=== PATIENT | male | born 1980 | race Caucasian/White ===

== ENCOUNTER 2016-08-17 17:59 | Emergency (ER) | payer OTHER ==
[2016-08-17 18:17] VITALS: RESP 16; TEMP 97.3; O2SAT 98
--- NOTE | 2016-08-17 19:28 | C.PDOC ---
History Of Present Illness 36 year old male presents to the ED with complaints of right second toe pain for the last few days after hitting toe on wall. Patient denies any obvious deformities, weakness, or sensory vascular deficits. Time Seen by Provider: 08/17/16 18:15 Chief Complaint (Nursing): Lower Extremity Problem/Injury History Per: Patient History/Exam Limitations: no limitations Onset/Duration Of Symptoms: Days (3 days ) Current Symptoms Are (Timing): Still Present Recent travel outside of the [place]: No - Ankle/Foot Description Of Injury: Struck Against Object (struck against wall ) Past Medical History Reviewed: Historical Data, Nursing Documentation, Vital Signs Vital Signs: Last Vital Signs Temp 97.3 F L 08/17/16 18:14 Pulse 92 H 08/17/16 18:14 Resp 16 08/17/16 18:14 BP 160/93 H 08/17/16 18:14 Pulse Ox 98 08/17/16 19:32 - Medical History PMH: Atrial Fibrillation (? PT IS UNSURE), Back Problems (HERNIATED DISCS), Crohn's Disease, HTN, Hypercholesterolemia, Hyperlipidemia Family History: States: [place], CAD, Diabetes, Hypertension - Social History Hx Tobacco Use: Yes (1/2 ppd for 24 years) Hx Alcohol Use: Yes Hx Substance Use: Yes (MARIJUANA, EVERY OTHER DAY, states has a liscense) - Immunization History Hx Influenza Vaccination: No Hx Pneumococcal Vaccination: No Review Of Systems Constitutional: Negative for: Fever, Chills, Sweats Cardiovascular: Negative for: Chest Pain, Palpitations Respiratory: Negative for: Cough, Shortness of Breath Gastrointestinal: Negative for: Nausea, Vomiting, Abdominal Pain, Diarrhea Musculoskeletal: Positive for: Foot Pain (right second toe pain ) Physical Exam - Physical Exam Appears: Non-toxic, No Acute Distress Skin: Warm, Dry, No Ecchymosis Extremity: Normal ROM, Tenderness (tenderness over distal right 2nd phalanx with trace ecchymoses, no defomrity. no skin changes.), Capillary Refill (good capillary refill ), Other (mild trace edema and eccyhmosis of the right second toe ) Neurological/Psych: Oriented x3, Normal Motor, Normal Sensation, Normal Reflexes Gait: Steady ED Course And Treatment O2 Sat by Pulse Oximetry: 98 (room air ) - Other Rad Right foot X-Ray: Interpreted by Me Interpretation: (+)?middle 2nd phalanx fx Progress Note: On re-evaluation, pt is afebrile, hemodynamicaly stable. Non- toxic. Right foot: exam c/w 2nd toe contusion, no deformity, no skin changes, no neurovascular deficits. xray review - no obvious fx noted. Ferdinand tape. Pt advised and ref. to F/u with windows technical specialist in 2-3 days for re-eavl. return if any new changes. Disposition Counseled Patient/Family Regarding: Studies Performed, Diagnosis, Need For Followup, Rx Given - Disposition Referrals: Podiatry Clinic [Outside] Disposition: HOME/ ROUTINE Disposition Time: 19:10 Condition: STABLE Additional Instructions: Ferdinand tape for 1 week take pain medication as need Ice, elevation, avoid prolong walking for 1 week Follow up with [facility] in 2-3 days for re-evaluation. Return to ED if any worsening or new changes. Prescriptions: traMADol [Ultram] 50 mg PO TID #7 tab Instructions: Toe Fracture (ED) - Clinical Impression Clinical Impression: Toe fracture - Scribe Statement The provider has reviewed the documentation as recorded by the Scribe Christine Bernal All medical record entries made by the Scribe were at my direction and personally dictated by me. I have reviewed the chart and agree that the record accurately reflects my personal performance of the history, physical exam, medical decision making, and the department course for this patient. I have also personally directed, reviewed, and agree with the discharge instructions and disposition.
[2016-08-17 19:53] VITALS: BP 142/85; PULSE 84
--- NOTE | 2016-08-18 08:51 | RAD ---
PROCEDURE: Right Foot Radiographs HISTORY: injury COMPARISON: None. FINDINGS: BONES: Normal. No fracture. JOINTS: Normal. SOFT TISSUES: Mild soft tissue swelling 2nd 3rd and 4th toes. Sissoring of the 4th toe of the 3rd and 5th over the 4th OTHER FINDINGS: None. IMPRESSION: No fracture appreciated. Soft tissue swelling. Toe scissoring orientation
== END 2016-08-17 19:52 | disposition home or self-care (01) ==
LOC: C.ER 17:59
DX: S92.521A Displaced fracture of middle phalanx of right lesser toe(s), initial encounter for closed fracture (principal); W22.8XXA Striking against or struck by other objects, initial encounter

== ENCOUNTER 2016-09-13 12:34 | Inpatient (IN) | payer MEDICAID, OTHER ==
[2016-09-13 12:47] VITALS: BMI 31.9
--- NOTE | 2016-09-13 14:16 | C.PDOC ---
History Of Present Illness 36 y/o male with history of left ventricular dysfunction with defibrillator, bipolar disorder; c/o intermittent sternal chest pain with occasional SOB since yesterday. Patient denies any firing of defibrillator or palpitations. Patient also c/o wanting to hurt himself over the last 2 days with verbalized plan of overdosing on medications all at once. Patient was hospitalized for previous suicidal attempt of similar nature, most recently Jul, 2016 at [facility] [place]. Time Seen by Provider: 09/13/16 13:48 Chief Complaint (Nursing): Chest Pain History Per: Patient History/Exam Limitations: no limitations Current Symptoms Are (Timing): Still Present Associated Symptoms: denies: Nausea, Diaphoresis Recent travel outside of the [place]: No Past Medical History Reviewed: Historical Data, Nursing Documentation, Vital Signs Vital Signs: Last Vital Signs Temp 97.8 F 09/13/16 15:25 Pulse 74 09/13/16 15:25 Resp 20 09/13/16 15:25 BP 122/81 09/13/16 15:25 Pulse Ox 95 09/13/16 15:25 - Medical History PMH: Atrial Fibrillation (? PT IS UNSURE), Back Problems (HERNIATED DISCS), Crohn's Disease, HTN, Hypercholesterolemia, Hyperlipidemia Family History: States: [place], CAD, Diabetes, Hypertension - Social History Hx Tobacco Use: Yes (1/2 ppd for 24 years) Hx Alcohol Use: Yes Hx Substance Use: Yes (MARIJUANA, EVERY OTHER DAY, states has a liscense) - Immunization History Hx Influenza Vaccination: No Hx Pneumococcal Vaccination: No Review Of Systems Except As Marked, All Systems Reviewed And Found Negative. Constitutional: Negative for: Fever, Chills Cardiovascular: Positive for: Chest Pain. Negative for: Palpitations Respiratory: Positive for: Shortness of Breath (occasional ). Negative for: Cough, Wheezing Gastrointestinal: Negative for: Nausea, Vomiting, Abdominal Pain Skin: Negative for: Rash Neurological: Negative for: Headache, Dizziness Psych: Positive for: Suicidal ideation Physical Exam - Physical Exam Appears: Non-toxic, No Acute Distress, Other (tearful) Skin: Warm, Dry, No Diaphoretic Head: Atraumatic, Normacephalic Eye(s): bilateral: Normal Inspection, PERRL, EOMI Oral Mucosa: Moist Chest: Symmetrical, Other (AICD left upper chest wall) Cardiovascular: Rhythm Regular Respiratory: Normal Breath Sounds, No Rales, No Rhonchi, No Wheezing Gastrointestinal/Abdominal: Soft, No Tenderness, No Guarding, No Rebound Back: Normal Inspection Extremity: Normal ROM, No Pedal Edema, No Calf Tenderness, Capillary Refill (< 2 sec. ) Neurological/Psych: Oriented x3, Normal Speech, Normal Cognition ED Course And Treatment - Laboratory Results Result Diagrams: 09/13/16 14:34 09/13/16 14:34 ECG: Interpreted By Me ECG Rhythm: Sinus Rhythm ECG Interpretation: No Changes From Prior (comapred with EKG from 05/15/2015) Interpretation Of ECG: right axis deviation, nonspecific intraventricular conduction delay O2 Sat by Pulse Oximetry: 95 (RA) Pulse Ox Interpretation: Normal Progress Note: Plan for full cardiac workup: EKG, CXR, labs, troponin. Likely admission, 1:1 crisis observation for suicidal ideation. Medical Decision Making Medical Decision Making: discussed with Rayo; wi;ll admot to his service on 1:1 and get psychiatry consult while on floor. first set trop neg. Disposition Discussed With Dr.: Juan Manuel Hui Doctor Will See Patient In The: Hospital - Disposition Disposition Time: 16:13 Condition: STABLE - Clinical Impression Clinical Impression: Chest pain, Suicidal ideation - PA / SPOON MAKER / Resident Statement MD/DO has reviewed & agrees with the documentation as recorded. - Scribe Statement The provider has reviewed the documentation as recorded by the Scribe Tino Kirby All medical record entries made by the Scribe were at my direction and personally dictated by me. I have reviewed the chart and agree that the record accurately reflects my personal performance of the history, physical exam, medical decision making, and the department course for this patient. I have also personally directed, reviewed, and agree with the discharge instructions and disposition.
[2016-09-13 14:44] LABS: BASO # 0.1 K/uL (0.0-0.2); BASO % 0.9 % (0.0-2.0); EOS # 0.2 K/uL (0.0-0.7); EOS % 1.9 % (0.0-4.0); LYMPH % 22.6 % (20.0-40.0); MEAN CELL VOLUME 88.7 fL (80.0-94.0); MEAN CORPUSCULAR HEMOGLOBIN 29.6 pg (27.0-31.0); MEAN CORPUSCULAR HGB CONC 33.3 g/dL (33.0-37.0); MEAN PLATELET VOLUME 8.4 fL (7.2-11.7); MONO # 0.8 K/uL (0.0-0.8); MONO % 8.8 % (0.0-10.0); NEUT # 5.9 K/uL (1.8-7.0); NEUT % 65.8 % (50.0-75.0); NRBC % 0.1 % (0.0-2.0); RBC 5.4 Mil/uL (4.40-5.90)
[2016-09-13 14:48] LABS: URINE BILIRUBIN NEGATIVE (NEGATIVE); URINE BLOOD NEGATIVE (NEGATIVE); URINE CLARITY Clear (Clear); URINE COLOR Yellow (YELLOW); URINE GLUCOSE (UA) NORMAL (Normal); URINE LEUKOCYTE ESTERASE NEG Leu/uL (Negative); URINE NITRATE NEGATIVE (NEGATIVE); URINE PROTEIN NEGATIVE (NEGATIVE); URINE UROBILINOGEN NORMAL mg/dL (0.2-1.0)
[2016-09-13 14:51] LABS: INR 1.1; PROTHROMBIN TIME 11.8 SECONDS (9.7-12.2)
[2016-09-13 14:56] LABS: BARBITURATES, UR NEGATIVE (NEGATIVE)
[2016-09-13 14:57] LABS: BENZODIAZEPINES, UR NEGATIVE (NEGATIVE)
[2016-09-13 15:00] LABS: OPIATES, UR NEGATIVE (NEGATIVE); PHENCYCLIDINE, UR NEGATIVE (NEGATIVE)
[2016-09-13] MEDS ORDERED: Acetaminophen-Codeine 300/30 mg Tab PO STA (15:09)
[2016-09-13 15:13] LABS: ALBUMIN 3.9 g/dL (3.5-5.0)
[2016-09-13 15:16] LABS: ALB/GLOB RATIO 1.3 (1.0-2.1); ALT/SGPT 44 U/L (21-72); AST/SGOT 25 U/L (17-59); BLOOD UREA NITROGEN 16 mg/dL (9-20); GFR AFRICAN-AMERICAN > 60; GFR NON-AFRICAN AMERICAN > 60
[2016-09-13 15:17] LABS: CALCIUM 8.5 mg/dl (8.6-10.4)
[2016-09-13] MEDS ORDERED: Acetaminophen-Codeine 300/30 mg Tab PO ONE (15:23)
--- NOTE | 2016-09-13 16:02 | RAD ---
HISTORY: chest pain COMPARISON: 05/15/2015 TECHNIQUE: Chest PA and lateral FINDINGS: LUNGS: No active pulmonary disease. PLEURA: No significant pleural effusion identified. No pneumothorax apparent. CARDIOVASCULAR: No radiographic findings to suggest acute or significant cardiovascular disease. Position/ configuration of pacemaker device: Satisfactory. OSSEOUS STRUCTURES: No significant abnormalities. VISUALIZED UPPER ABDOMEN: Normal. OTHER FINDINGS: None. IMPRESSION: No active disease. No significant interval change compared to the prior examination(s).
[2016-09-14 00:01] LABS: CK-MB 0.3 ng/mL (0.0-3.38)
[2016-09-14 01:34] VITALS: O2SAT 95
[2016-09-14 06:47] LABS: ALBUMIN 3.7 g/dL (3.5-5.0)
[2016-09-14 06:48] LABS: CK-MB 0.44 ng/mL (0.0-3.38)
[2016-09-14 06:50] LABS: ALB/GLOB RATIO 1.2 (1.0-2.1); ALT/SGPT 43 U/L (21-72); AST/SGOT 26 U/L (17-59); BLOOD UREA NITROGEN 15 mg/dL (9-20); GFR AFRICAN-AMERICAN > 60; GFR NON-AFRICAN AMERICAN > 60
[2016-09-14 06:51] LABS: CALCIUM 8.7 mg/dl (8.6-10.4)
--- NOTE | 2016-09-14 07:20 | CP.PCM.PN ---
Objective - Vital Signs/Intake and Output Vital Signs (last 24 hours): Temp Pulse Resp BP Pulse Ox 97.8 F 75 20 147/89 95 09/14/16 00:05 09/14/16 00:59 09/14/16 00:05 09/14/16 00:05 09/14/16 00:05 - Medications Medications: Current Medications Bupropion HCl (Wellbutrin Xl) 150 mg PO DAILY [facility] Clonazepam (Klonopin) 0.5 mg PO BID [facility] Cyclobenzaprine HCl (Flexeril) 5 mg PO TID [facility] Diclofenac Sodium (Voltaren) 50 mg PO TID [facility] Enoxaparin Sodium (Lovenox) 40 mg SC DAILY [facility] Montelukast Sodium (Singulair) 10 mg PO HS [facility] Last Admin: 09/13/16 22:41 Dose: 10 mg Pantoprazole Sodium (Protonix Ec Tab) 40 mg PO DAILY [facility] Rivaroxaban (Xarelto) 20 mg PO DAILY [facility] Sotalol HCl (Betapace) 120 mg PO BID [facility] Testosterone (Androgel) 60 gm TOP DAILY [facility] Stop: 09/17/16 10:01 Tiotropium [place] (Spiriva Inhalation Handihaler Device) 1 inhaler INH DAILY [facility] Tramadol HCl (Ultram) 50 mg PO TID [facility] - Labs Labs: 09/14/16 06:08 PT 11.8 SECONDS (9.7-12.2) 09/13/16 14:34 INR 1.1 09/13/16 14:34 APTT 33 SECONDS (21-34) 09/13/16 14:34
[2016-09-14] MEDS ORDERED: Enoxaparin 40 mg Syringe SC SCH ×2 (10:00)
[2016-09-14] MEDS ORDERED: TESTOSTERONE TOP SCH (10:00)
[2016-09-14] MEDS: buPROPion 150 mg/24 Hours XL Tab PO SCH (11:23)
[2016-09-14] MEDS: Diclofenac Sodium Delayed Release 50 mg EC Tab PO SCH ×3 (11:24→20:01)
[2016-09-14] MEDS: Pantoprazole 40 mg EC Tab PO SCH (11:25)
--- NOTE | 2016-09-14 12:48 | PCM.PSYCH ---
Initial Psychiatric Evaluation - Initial Psychiatric Evaluation Type of Admission: Voluntary Legal Status: Capacity Chief Complaint (in patient's own words): I was feeling depressed and suicidal History of Present Illness and Precipitating Events: This is a 36 years old CM, who lives alone on SSI, was admitted on the medical floor because of chest pain and drinking. Today pt was consulted for depression and drinking. Patient reports a long history of drinking and bipolar disorder. Pt states that he is drinking 12-18 16 oz beers on a daily basis. As per the patient, he stopped taking medications after the last discharged from psychiatric hospital in 2005 and relapsed on drinking. Patient states that day before yesterday he drank almost 12 beers 16 oz, and became increasingly depressed and developed suicidal ideation with plan OD. But he developed chest pain and came to the hospital. He reports depressed mood, and feelings of hopelessness and helplessness. He also reports poor sleep and poor appetite. Patient reports withdrawal symptoms including nausea, sweating and anxiety. He also reports irritability, agitation and racing thoughts. However he denies any hallucinations or any delusions. Medical history Atrial Fibrillation s/p Defibrilator, Back Problems (HERNIATED DISCS), Crohn's Disease, HTN, Hypercholesterolemia, Hyperlipidemia Current Medications: Active Medications Generic Name Dose Route Start Last Admin Trade Name Freq PRN Reason Stop Dose Admin Bupropion HCl 150 mg 09/14/16 10:00 09/14/16 11:23 Wellbutrin Xl PO 150 mg DAILY [facility] Administration Clonazepam 0.5 mg 09/14/16 10:00 09/14/16 11:23 Klonopin PO 0.5 mg BID [facility] Administration Cyclobenzaprine HCl 5 mg 09/14/16 10:00 09/14/16 11:23 Flexeril PO 5 mg TID [facility] Administration Diclofenac Sodium 50 mg 09/14/16 10:09/14/16 11:24 Voltaren PO 50 mg TID [facility] Administration Montelukast Sodium 10 mg 09/13/16 22:00 09/13/16 22:41 Singulair PO 10 mg HS [facility] Administration Pantoprazole Sodium 40 mg 09/14/16 10:09/14/16 11:25 Protonix Ec Tab PO 40 mg DAILY [facility] Administration Rivaroxaban 20 mg 09/14/16 10:00 09/14/16 11:23 Xarelto PO 20 mg DAILY [facility] Administration Sotalol HCl 120 mg 09/14/16 10:00 09/14/16 11:23 Betapace PO 120 mg BID [facility] Administration Testosterone 60 gm 09/14/16 10:00 09/14/16 11:23 Androgel TOP 09/17/16 10:01 Not Given DAILY [facility] Tiotropium [place] 18 mcg 09/15/16 08:00 Spiriva INH RQD [facility] Tramadol HCl 50 mg 09/14/16 10:00 09/14/16 11:24 Ultram PO 50 mg TID [facility] Administration Past Psychiatric History - Past Psychiatric History Previous Treatment History: Inpatient Pertinent Medical Hx (Current Medical&Sleep Prob, Allergies): Allergies Allergy/AdvReac Type Severity Reaction Status Date / Time No Known Allergies Allergy Verified 09/13/16 12:51 Bupropion HCl [Bupropion HCl Xl] 150 mg PO DAILY 08/17/16 Clonazepam [Klonopin] 0.5 mg PO BID 08/17/16 Diclofenac Potassium 50 mg PO TID 08/17/16 Hydrocodone/Acetaminophen [Acetaminophen-Hydrocodone Bitartrate 325 mg-1] 1 tab PO Q4 PRN 08/17/16 Montelukast Sodium [Singulair] 10 mg PO DAILY 08/17/16 Nabumetone [Relafen] 750 mg PO BID 08/17/16 Omeprazole 40 mg PO DAILY 08/17/16 Rivaroxaban [Xarelto] 20 mg PO DAILY 08/17/16 Sotalol [Betapace] 120 mg PO BID 08/17/16 Testosterone 60 gm TD DAILY 08/17/16 Tiotropium [place] Inhaler [Spiriva Inhalation Handihaler Device] 1 inhaler INH DAILY 08/17/16 tiZANidine [Zanaflex] 4 mg PO BID 08/17/16 traMADol [Ultram] 50 mg PO TID PRN 09/13/16 Review of Systems - Review of Systems All systems: reviewed and no additional remarkable complaints except - Psychiatric Psychiatric: Anxiety, Depression, Irritability, Mood Swings, Suicidal Ideation Mental Status Examination - Personal Presentation Personal Presentation: Looks stated age - Affect Affect: Constricted, Depressed - Motor Activity Motor Activity: Calm - Reliability in Providing Information Reliability in Providing Information: Good - Speech Speech: Organized - Mood Mood: Depressed, Anxious - Formal Thought Process Formal Thought Process: No Impairment - Obsessions/Compulsions Obsessions: No Compulsions: No - Cognitive Functions Orientation: Person, Place, Situation, Time Sensorium: Alert Attention/Concentration: Attentive Abstract Thinking: Tarrs Estimate of Intelligence: Below average Judgement: Imparied, as evidence by: Poor judgement, Imparied, as evidence by: Lack of insight into illness - Risk Risk: Suicidal, Diminished functioning - Limitations Limitations: Living alone DSM 5 DX - DSM 5 DSM 5 Diagnosis: Bipolar disorder Mixed severe without psychotic features Cannabis use moderate - Recommended/Plan of Treatment Treatment Recommendations and Plan of Treatment: Bipolar disorder Mixed severe without psychotic features CBT Psychoeducation Supportive therapy, group therapy, individual therapy Welbutrin XL 150 mg PO Daily Neurontin 100 mg by mouth 3 times a day Trazodone 50 mg by mouth daily at bedtime Cannabis use moderate severe CBT Psychoeducation Supportive therapy, individual therapy Use MS for abstinence - Smoking Cessation Smoking Cessation Initiated: No
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
--- NOTE | 2016-09-14 16:07 | CARD ---
APPROVED REPORT EXAM: Two-dimensional and M-mode echocardiogram with Doppler and color Doppler. Other Information Quality : GoodRhythm : NSR INDICATION ICD: Abnormal EKG/Arrhythmia Chest Pain Palpitations M-Mode DIMENSIONS RVDd2.47 (2.1-3.2cm)Left Atrium (MM)4.45 (2.5-4.0cm) IVSd1.01 (0.7-1.1cm)Aortic Root3.12 (2.2-3.7cm) LVDd5.37 (4.0-5.6cm)Aortic Cusp Exc.1.56 (1.5-2.0cm) PWd1.14 (0.7-1.1cm)FS (%) 28 % LVDs3.84 (2.0-3.8cm)LVEF (%)54 (>50%) Mitral Valve MV E Hjyccuqu00.6cm/sMV A Uhmcpmzm53.6cm/sE/A ratio2.1 TDI E/Lateral E'0.0E/Medial E'0.0 Tricuspid Valve TR Peak [id number]/sTR Peak [id number] LEFT VENTRICLE The left ventricle is normal size. There is normal left ventricular wall thickness. The left ventricularsystolic function is at low normal. There is normal LV segmental wall motion. Transmitral Doppler flow pattern is Grade II-pseudonormal filling dynamics. RIGHT VENTRICLE The right ventricle is normal size. The right ventricular systolic function is normal. There is a pacemaker lead in the right ventricle. ATRIA The left atrium is mildly dilated. The right atrium size is normal. AORTIC VALVE The aortic valve is normal in structure. No aortic regurgitation is present. MITRAL VALVE The mitral valve is normal in structure. There is no mitral valve regurgitation noted. TRICUSPID VALVE The tricuspid valve is normal in structure. There is mild tricuspid regurgitation. PULMONIC VALVE The pulmonary valve is normal in structure. GREAT VESSELS The aortic root is normal in size. The IVC is normal in size and collapses >50% with inspiration. PERICARDIAL EFFUSION There is no pericardial effusion. <Conclusion> The left ventricularsystolic function is at low normal. Diastolic dysfunction Grade II-pseudonormal filling dynamics. The right ventricular systolic function is normal. There is a pacemaker lead in the right ventricle. The left atrium is mildly dilated. There is mild tricuspid regurgitation. There is no pericardial effusion.
--- NOTE | 2016-09-14 16:28 | PCM.BM ---
Treatment Plan Problems - Problems identified on initial assessmt Depression Date Initiated: 09/14/16 (Transfer from [address] [place] [address]) Time Initiated: 16:26 Assessment reference: NA Status: Active Treatment assets and liabiliti Patient Assests: adapts well, ADL independent, negotiates basic needs Patient Liabilities: substance abuse, medical problems - Milieu Protocol Maintain good personal hygiene: daily Encourage regular showers, daily Remind patient to perform daily oral care Maintain personal safety: every shift Educate patient to report safety concerns to staff, every shift Monitor environment for contraband/sharps Medication safety: Monitor for expected outcome, potential side effects: every shift, Assess barriers to learning: every shift, Assess readiness for medication education: every shift
[2016-09-15] MEDS: Pantoprazole 40 mg EC Tab PO SCH (09:38)
[2016-09-15] MEDS: buPROPion 150 mg/24 Hours XL Tab PO SCH (09:38)
[2016-09-15] MEDS: Tiotropium 18 mcg Cap For Inhalation INH SCH (09:40)
[2016-09-15] MEDS: Diclofenac Sodium Delayed Release 50 mg EC Tab PO SCH ×3 (09:41→17:23)
--- NOTE | 2016-09-15 11:41 | CARD ---
APPROVED REPORT EKG Measurement Heart [id number] <Conclusion> Normal sinus rhythm Right axis deviation Nonspecific intraventricular conduction delay Abnormal ECG
--- NOTE | 2016-09-15 13:38 | PCM.PYCHPN ---
Psychiatric Progress Note - Psychiatric Progress Note Patient seen today, length of contact: 16 min Patient Chief Complaint: I was feeling depressed and suicidal Problems Identified/Issues Discussed: Patient seen and evaluated, chart reviewed and discussed with the nurse. P[t was transferred to , for stabilization. As per the staff, patient still appears isolated, depressed and withdrawn. Patient still reports depressed mood and reports at times feelings of hopelessness or helplessness. He denies any withdrawal symptoms. He denies any auditory or visual hallucinations or any psychotic symptoms. He is compliant with his medications and denies any side effects. Supportive therapy and psychoeducation were given. Medication Change: No Medical Record Reviewed: Yes Mental Status Examination - Cognitive Function Orientation: Person, Place, Situation, Time Memory: Intact Attention: WNL Concentration: Poor Association: WNL Fund of Knowledge: Poor - Mood Mood: Depressed, Anxious - Affect Affect: Constricted, Depressed - Speech Speech: Soft - Formal Thought Process Formal Thought Process: No Impairment - Suicidal Ideation Suicidal Ideation: No - Homicidal Ideation Homicidal Ideation: No Goal/Treatment Plan - Goal/Treatment Plan Need for Continued Stay: Discharge may exacerbated symptoms, Severe functional impairment Progress Toward Problem(s) and Goals/Treatment Plan: Bipolar disorder Mixed severe without psychotic features CBT Psychoeducation Supportive therapy, group therapy, individual therapy Welbutrin XL 150 mg PO Daily Neurontin 100 mg by mouth 3 times a day Trazodone 50 mg by mouth daily at bedtime Cannabis use moderate severe CBT Psychoeducation Supportive therapy, individual therapy Use CA for abstinence Asthma Monitor s/s Continue prescribed meds A Fib Monitor s/s Continue prescribed meds Crohn's disease Continue prescribed meds Hypercholestrolimia Continue prescribed meds Back pain Monitor s/s Continue prescribed meds - Smoking Cessation Smoking Cessation Initiated: No
[2016-09-16] MEDS: buPROPion 150 mg/24 Hours XL Tab PO SCH (09:52)
[2016-09-16] MEDS: Diclofenac Sodium Delayed Release 50 mg EC Tab PO SCH ×3 (09:52→18:57)
[2016-09-16] MEDS: Pantoprazole 40 mg EC Tab PO SCH (09:52)
[2016-09-16] MEDS: Tiotropium 18 mcg Cap For Inhalation INH SCH (13:03)
--- NOTE | 2016-09-16 15:25 | PCM.PYCHPN ---
Psychiatric Progress Note - Psychiatric Progress Note Patient seen today, length of contact: 16 min Patient Chief Complaint: I am feeling better today Problems Identified/Issues Discussed: Patient seen and evaluated, chart reviewed and discussed with the nurse. Patient reports of feeling better today. He denies any suicidal ideations, and hallucinations. He states that his mood has improved since yesterday. Patient denies any withdrawal symptoms. Patient denies any delusions today. Patient is compliant with all his medications and denies any side effects. Supportive therapy and psychoeducation were given. Medication Change: No Medical Record Reviewed: Yes Mental Status Examination - Cognitive Function Orientation: Person, Place, Situation, Time Memory: Intact Attention: WNL Concentration: Poor Association: WNL Fund of Knowledge: Poor - Mood Mood: Depressed, Anxious - Affect Affect: Constricted, Depressed - Speech Speech: Soft - Formal Thought Process Formal Thought Process: No Impairment - Suicidal Ideation Suicidal Ideation: No - Homicidal Ideation Homicidal Ideation: No Goal/Treatment Plan - Goal/Treatment Plan Need for Continued Stay: Discharge may exacerbated symptoms, Severe functional impairment Progress Toward Problem(s) and Goals/Treatment Plan: Bipolar disorder Mixed severe without psychotic features CBT Psychoeducation Supportive therapy, group therapy, individual therapy Welbutrin XL 150 mg PO Daily Neurontin 100 mg by mouth 3 times a day Trazodone 50 mg by mouth daily at bedtime Cannabis use moderate severe CBT Psychoeducation Supportive therapy, individual therapy Use NM for abstinence Asthma Monitor s/s Continue prescribed meds A Fib Monitor s/s Continue prescribed meds Crohn's disease Continue prescribed meds Hypercholestrolimia Continue prescribed meds Back pain Monitor s/s Continue prescribed meds
[2016-09-16] MEDS ORDERED: Aluminum Hydroxide/Magnesium Hydroxide Susp (30 mL) PO PRN (16:05)
[2016-09-17] MEDS: buPROPion 150 mg/24 Hours XL Tab PO SCH (10:25)
[2016-09-17] MEDS: Pantoprazole 40 mg EC Tab PO SCH (10:26)
[2016-09-17] MEDS: Diclofenac Sodium Delayed Release 50 mg EC Tab PO SCH (10:27)
[2016-09-17] MEDS: Tiotropium 18 mcg Cap For Inhalation INH SCH (10:27)
--- NOTE | 2016-09-17 10:33 | PCM.PYCHDC ---
Mental Status Examination - Mental Status Examination Orientation: Person, Place, Situation, Time Memory: Intact Mood: Neutral Affect: Constricted Speech: Soft Attention: WNL Concentration: WNL Association: WNL Fund of Knowledge: WNL Formal Thought Process: No Impairment Description of patient's judgement and insight: good, fair Psychotic Thoughts and Behaviors: denies any AVH Suicidal Ideation: No Current Homicidal Ideation?: No Discharge Summary - Discharge Note Reason for Hospitalization: This is a 36 years old CM, who lives alone on [facility], was admitted on the medical floor because of chest pain and drinking. Today pt was consulted for depression and drinking. Patient reports a long history of drinking and bipolar disorder. Pt states that he is drinking 12-18 16 oz beers on a daily basis. As per the patient, he stopped taking medications after the last discharged from psychiatric hospital in 2005 and relapsed on drinking. Patient states that day before yesterday he drank almost 12 beers 16 oz, and became increasingly depressed and developed suicidal ideation with plan OD. But he developed chest pain and came to the hospital. He reports depressed mood, and feelings of hopelessness and helplessness. He also reports poor sleep and poor appetite. Patient reports withdrawal symptoms including nausea, sweating and anxiety. He also reports irritability, agitation and racing thoughts. However he denies any hallucinations or any delusions. Consultations:: List each consultation separately and include: 1. Reason for request. 2. Findings. 3. Follow-up Summary of Hospital Course include:: 1. Description of specific treatment plan utilized for patients during their course of treatmen. 2. Summarize the time- course for resolution of acute symptoms and/or regressed behaviors. 3. Describe issues identified and worked on during hospitalization. 4. Describe medication utilized. 5. Describe medical problems identified and treated. 6. Reassessment of suicide risk Summary of Hospital Course: During the course of his stay, patient (pt) started progressively improving and he no longer remained irritable, depressed, suicidal and agitated. His mood and withdrawal symptoms were improved and he started attending groups and meetings and started socializing. Patient denied any feelings of hopelessness, helplessness, and worthlessness, denied any problem with the sleep or appetite, denied suicidal ideation or homicidal ideation. Pt denied any auditory or visual hallucinations. Some changes were made in his current medications and patient was discharged on following medications. He tolerated these medications very well and denied any side effects. - Final Diagnosis (DSM 5) Condition upon Discharge: STABLE DSM 5: Bipolar disorder Mixed severe without psychotic features Cannabis use moderate severe Disposition: HOME/ ROUTINE Follow-up Treatment Plan: Education: Pt was educated and counseled about the risks and benefits of taking and not taking medications. Pt was educated and counseled about the risks of drinking and abusing drugs. Pt was educated and counseled to go to the ER or call 911 if pt develop suicidal ideation or homicidal ideation, worsening of symptoms or severe side effects of the meds. Prescriptions/Medication Reconciliation: buPROPion XL [Wellbutrin XL] 150 mg PO DAILY #30 t24 Cyclobenzaprine [Flexeril] 10 mg PO BID #60 tab traZODone [Desyrel] 50 mg PO HS #30 tab - Smoking Cessation Smoking Cessation Medication prescribed: No - Antipsychotic Medications Pt discharged on 2 or more routine antipsychotic medications: No
[2016-09-17 14:08] VITALS: BP 137/93; PULSE 61; RESP 19; TEMP 98.6
== END 2016-09-17 16:05 | disposition home or self-care (01) | DRG 430 ==
LOC: C.ER 12:34 → C.9E 16:11 → C.5T 18:18 → OBSVTOIN 09-14 13:06 → C.5E 09-14 16:11 → OBSVTOIN 09-15 11:23 → INTOOBSV 09-15 11:23 → C.5E 09-16 23:54
PROVIDERS: ADMIT Psychiatry & Neurology Psychiatry; ATTEND Psychiatry & Neurology Psychiatry
PROC: GZ3ZZZZ Medication Management (ICD-10-PCS; principal; 2016-09-14)
PROC: GZHZZZZ Group Psychotherapy (ICD-10-PCS; 2016-09-14)
PROC: GZ56ZZZ Individual Psychotherapy, Supportive (ICD-10-PCS; 2016-09-14)
PROC: HZ59ZZZ Individual Psychotherapy for Substance Abuse Treatment, Supportive (ICD-10-PCS; 2016-09-14)
PROC: HZ89ZZZ Medication Management for Substance Abuse Treatment, Other Replacement Medication (ICD-10-PCS; 2016-09-14)
DX: F31.63 Bipolar disorder, current episode mixed, severe, without psychotic features (principal); R45.851 Suicidal ideations; F12.10 Cannabis abuse, uncomplicated; K50.90 Crohn's disease, unspecified, without complications; R07.89 Other chest pain; I11.9 Hypertensive heart disease without heart failure; I48.91 Unspecified atrial fibrillation; E78.5 Hyperlipidemia, unspecified; E78.00 Pure hypercholesterolemia, unspecified; F41.9 Anxiety disorder, unspecified; J45.909 Unspecified asthma, uncomplicated; F17.210 Nicotine dependence, cigarettes, uncomplicated; G89.29 Other chronic pain; M51.26 Other intervertebral disc displacement, lumbar region; Z95.810 Presence of automatic (implantable) cardiac defibrillator; Z79.899 Other long term (current) drug therapy

== ENCOUNTER 2016-11-14 22:50 | Emergency (ER) | payer OTHER ==
[2016-11-14 22:50] VITALS: BMI 31.9
--- NOTE | 2016-11-14 23:19 | C.PDOC ---
History Of Present Illness 36 year old male who presents to the ER with a complaint of a sharp left sided chest pain that began 2 hours ago, associated with a mild cough. Patient states the pain worsens with movement and deep inspiration. Denies recent injury, fever, or SOB. Chief Complaint (Nursing): Chest Pain History Per: Patient History/Exam Limitations: no limitations Onset/Duration Of Symptoms: Hrs Current Symptoms Are (Timing): Still Present Quality: Sharp Associated Symptoms: denies: Nausea, Dyspnea, Diaphoresis, Syncope Modifying Factors: None Exacerbating Factors: None Alleviating Factors: None Recent travel outside of the [place]: No Past Medical History Reviewed: Historical Data, Nursing Documentation, Vital Signs Vital Signs: Last Vital Signs Temp 98 F 11/15/16 00:46 Pulse 65 11/15/16 00:46 Resp 18 11/15/16 00:46 BP 145/94 H 11/15/16 00:46 Pulse Ox 97 11/15/16 00:46 - Medical History PMH: Atrial Fibrillation (? PT IS UNSURE), Back Problems (HERNIATED DISCS), Crohn's Disease, HTN, Hypercholesterolemia, Hyperlipidemia Surgical History: No Surg Hx - [facility] Procedures GROUP PSYCHOTHERAPY (09/14/16) INDIV PSYCHOTHERAPY FOR SUBSTANCE ABUSE TREATMENT, SUPPORT (09/14/16) INDIVIDUAL PSYCHOTHERAPY, SUPPORTIVE (09/14/16) MEDICATION MANAGEMENT (09/14/16) MEDS MGMT FOR SUBSTANCE ABUSE TREATMENT, OTH REPL MED (09/14/16) Family History: States: [place], CAD, Diabetes, Hypertension - Social History Hx Tobacco Use: Yes (1/2 ppd for 24 years) Hx Alcohol Use: Yes Hx Substance Use: Yes - Immunization History Hx Influenza Vaccination: No Hx Pneumococcal Vaccination: No Review Of Systems Constitutional: Negative for: Fever, Chills Cardiovascular: Positive for: Chest Pain Respiratory: Negative for: Shortness of Breath Gastrointestinal: Negative for: Nausea, Vomiting Neurological: Negative for: Weakness, Numbness Physical Exam - Physical Exam Appears: Non-toxic, No Acute Distress Skin: Normal Color, Warm, Dry Head: Atraumatic, Normacephalic Oral Mucosa: Moist Neck: Normal, Supple Chest: Symmetrical, Tenderness (Left lateral wall area) Cardiovascular: Rhythm Regular, No Murmur Respiratory: Normal Breath Sounds, No Rales, No Rhonchi, No Wheezing Gastrointestinal/Abdominal: Soft, No Tenderness Neurological/Psych: Oriented x3, Normal Speech, Normal Cognition ED Course And Treatment - Laboratory Results Result Diagrams: 11/14/16 23:33 11/14/16 23:33 ECG: Interpreted By Me, Viewed By Me ECG Rhythm: Sinus Rhythm, 1st Degree HB ECG Interpretation: No Acute Changes Interpretation Of ECG: Sinus rhythm with 1st degree AV block, [place]. [place] deviation , IVCD, borderline tracings Rate From EC O2 Sat by Pulse Oximetry: 98 Pulse Ox Interpretation: Normal Progress Note: Blood work, EKG, and CXR ordered. IV fluids and toradol administered. Disposition - Disposition Referrals: Jose E Escobedo MD, PhD [Primary Care Provider] - Disposition: HOME/ ROUTINE Disposition Time: 02:46 Condition: STABLE Prescriptions: Naproxen [Naprosyn Tab] 375 mg PO TIDPC #14 tab Instructions: Chest Wall Pain (ED) Forms: [facility] ([place]) - POA Present On Arrival: None - Clinical Impression Clinical Impression: Left-sided chest wall pain - Scribe Statement The provider has reviewed the documentation as recorded by the Scribkristofer Burton All medical record entries made by the Scribe were at my direction and personally dictated by me. I have reviewed the chart and agree that the record accurately reflects my personal performance of the history, physical exam, medical decision making, and the department course for this patient. I have also personally directed, reviewed, and agree with the discharge instructions and disposition.
[2016-11-14] MEDS ORDERED: Sodium Chloride 0.9% 1,000 ML IV ONE (23:22)
[2016-11-14] MEDS ORDERED: Sodium Chloride 0.9% 1,000 ML ONE (23:35)
[2016-11-14 23:36] LABS: BASO % 0.2 % (0.0-2.0); EOS # 0.2 K/uL (0.0-0.7); EOS % 1.8 % (0.0-4.0); HEMATOCRIT 49.2 % (35.0-51.0); LYMPH # 2.6 K/uL (1.0-4.3); LYMPH % 24.8 % (20.0-40.0); MEAN CELL VOLUME 87.7 fL (80.0-94.0); MEAN CORPUSCULAR HEMOGLOBIN 30.4 pg (27.0-31.0); MEAN CORPUSCULAR HGB CONC 34.6 g/dL (33.0-37.0); MEAN PLATELET VOLUME 8.5 fL (7.2-11.7); MONO # 0.8 K/uL (0.0-0.8); MONO % 7.8 % (0.0-10.0); NRBC % 0.1 % (0.0-2.0); RED CELL DISTRIBUTION WIDTH 14.2 % (11.5-14.5); WHITE BLOOD COUNT 10.3 K/uL (4.8-10.8)
[2016-11-14 23:46] LABS: INR 1.1
[2016-11-14 23:52] LABS: CHLORIDE 105 mmol/L (98-107); POTASSIUM 3.7 mmol/L (3.6-5.2); SODIUM 141 mmol/L (132-148)
[2016-11-14 23:54] LABS: AST/SGOT 54 U/L (17-59); BILIRUBIN,TOTAL 0.6 mg/dL (0.2-1.3); GFR AFRICAN-AMERICAN > 60
[2016-11-14 23:55] LABS: ALB/GLOB RATIO 1.4 (1.0-2.1); ALKALINE PHOSPHATASE 78 U/L (38-126); ALT/SGPT 87 U/L (21-72); BLOOD UREA NITROGEN 15 mg/dL (9-20); CALCIUM 9.4 mg/dl (8.6-10.4); CARBON DIOXIDE 24 mmol/L (22-30); GLUCOSE,RANDOM 85 mg/dL (75-110); TOTAL PROTEIN 7.6 g/dL (6.3-8.3)
[2016-11-15 00:47] VITALS: TEMP 98
[2016-11-15] MEDS ORDERED: Iodixanol 320 MG/ML 100 ML BOTTLE IV ONE (01:07)
--- NOTE | 2016-11-15 02:31 | CT ---
EXAM: CT Angiography Chest With Intravenous Contrast CLINICAL HISTORY: 36 years old, male; Pain; Chest pain; Prior surgery; Surgery type: Back surgery, part of colon remove and heart surgery; Patient HX: Cxr 11-14-16 and 09-13-16; Additional info: Left sided chest pain/ elevated d-dimer TECHNIQUE: Axial computed tomographic angiography images of the chest with intravenous contrast using pulmonary embolism protocol. All CT scans at this facility use one or more dose reduction techniques, viz.: automated exposure control; ma/kV adjustment per patient size (including targeted exams where dose is matched to indication; i.e. head); or iterative reconstruction technique. MIP reconstructed images were created and reviewed. Coronal and sagittal reformatted images were created and reviewed. CONTRAST: 100 mL of [id number] administered intravenously. COMPARISON: CR - CHEST TWO VIEWS (PA/LAT) 11/15/2016 12:20:10 AM FINDINGS: Pulmonary arteries: No pulmonary embolism. Aorta: No aneurysm. No dissection. Lungs: Mild mucus within mainstem bronchi. No consolidation. Few pulmonary nodules, up to 0.3 cm. Pleural space: No significant effusion. No pneumothorax. Heart: No cardiomegaly. No significant pericardial effusion. Bones/joints: No acute fracture. No dislocation. Soft tissues: Unremarkable. Lymph nodes: No pathologically enlarged lymph nodes. Tubes, lines and devices: LEFT pacemaker. IMPRESSION: 1. No CT evidence of pulmonary embolism. 2. Pulmonary nodules. For low-risk patients, no follow-up is necessary. For high-risk patients (smoking history or other known risk factors) an optional CT at 12 months could be performed. 3. Incidental/non-acute findings are described above.
[2016-11-15 02:59] VITALS: BP 132/90; PULSE 91; RESP 20; O2SAT 100
--- NOTE | 2016-11-15 10:38 | RAD ---
HISTORY: chest pain COMPARISON: 09/13/2016 TECHNIQUE: Chest PA and lateral FINDINGS: LUNGS: Mild venous congestion. Biapical pleural thickening. PLEURA: No significant pleural effusion identified. No pneumothorax apparent. CARDIOVASCULAR: Left-sided pacemaker. Heart size within normal limits. OSSEOUS STRUCTURES: No significant abnormalities. VISUALIZED UPPER ABDOMEN: Normal. OTHER FINDINGS: None. IMPRESSION: Mild venous congestion. Biapical pleural thickening.
--- NOTE | 2016-11-18 20:41 | CARD ---
APPROVED REPORT EKG Measurement Heart [id number] <Conclusion> Sinus rhythm with 1st degree AV block Rightward axis Nonspecific intraventricular conduction delay Borderline ECG
== END 2016-11-15 02:58 | disposition home or self-care (01) ==
LOC: SUPCPDRO 22:50 → C.ER 22:50
DX: R07.89 Other chest pain (principal)
CPT/HCPCS: 71020; 71275; 80053; 84484; 85025; 85378; 85610; 85730; 96374; 99284; J1885; J7040; Q9967

== ENCOUNTER 2017-03-15 15:22 | Inpatient (IN) | payer MEDICAID, OTHER ==
[2017-03-15 15:22] VITALS: BMI 31.9
[2017-03-15] MEDS ORDERED: Iohexol 240 (50 ml) PO STA (15:58)
[2017-03-15] MEDS ORDERED: Sodium Chloride 0.9% 1,000 ML IV ONE (15:58)
[2017-03-15] MEDS ORDERED: Belladonna-Phenobarbital PO STA (15:58)
--- NOTE | 2017-03-15 16:04 | C.PDOC ---
History Of Present Illness 36 year old male with PMHx of depression and crohn's disease present to the ED c /o left lower abdominal pain rated at 10/10 associated with fever, chills, bloody diarrhea and vomit. Patient states he was diagnosed with crohn's disease couple of years ago and usually has flares ups but this time the pain is worse. Patient states he is drinking, eating normally and still smokes. Patient is currently taking medication for his depression. Patient denies dysuria, hematuria, back pain, headache, weakness, numbness. Time Seen by Provider: 03/15/17 15:49 Chief Complaint (Nursing): Abdominal Pain History Per: Patient History/Exam Limitations: no limitations Onset/Duration Of Symptoms: Intermittent Episodes Pain Scale Rating Of: 10 Location Of Pain/Discomfort: LLQ Radiation Of Pain To:: None Quality Of Discomfort: "Pain" Associated Symptoms: Fever, Chills, Vomiting, Diarrhea Alleviating Factors: None Last Bowel Movement: Today Recent travel outside of the [place]: No Additional History Per: Patient Past Medical History Reviewed: Historical Data, Nursing Documentation, Vital Signs Vital Signs: Last Vital Signs Temp 99 F 03/15/17 15:36 Pulse 78 03/15/17 15:36 Resp 18 03/15/17 15:36 BP 159/84 H 03/15/17 15:36 Pulse Ox 98 03/15/17 16:10 - Medical History PMH: Atrial Fibrillation (? PT IS UNSURE), Back Problems (HERNIATED DISCS), Crohn's Disease, HTN, Hypercholesterolemia, Hyperlipidemia Denies: Diabetes, Hepatitis, HIV, Chronic Kidney Disease, Seizures, Sexually Transmitted Disease Surgical History: No Surg Hx - [facility] Procedures GROUP PSYCHOTHERAPY (09/14/16) INDIV PSYCHOTHERAPY FOR SUBSTANCE ABUSE TREATMENT, SUPPORT (09/14/16) INDIVIDUAL PSYCHOTHERAPY, SUPPORTIVE (09/14/16) MEDICATION MANAGEMENT (09/14/16) MEDS MGMT FOR SUBSTANCE ABUSE TREATMENT, OTH REPL MED (09/14/16) Family History: States: [place], CAD, Diabetes, Hypertension - Social History Hx Tobacco Use: Yes (1/2 ppd for 24 years) Hx Alcohol Use: No Hx Substance Use: Yes - Immunization History Hx Tetanus Toxoid Vaccination: No Hx Influenza Vaccination: No Hx Pneumococcal Vaccination: No Review Of Systems Constitutional: Negative for: Fever, Chills Cardiovascular: Negative for: Chest Pain, Palpitations Respiratory: Negative for: Cough, Shortness of Breath Gastrointestinal: Positive for: Vomiting, Abdominal Pain, Diarrhea Genitourinary: Negative for: Dysuria, Hematuria Skin: Negative for: Rash Neurological: Negative for: Weakness, Numbness Physical Exam - Physical Exam Appears: Non-toxic, No Acute Distress Skin: Normal Color, Warm, Dry Head: Atraumatic, Normacephalic Nose: No Discharge Oral Mucosa: Moist Neck: Normal ROM, Supple Chest: Symmetrical Cardiovascular: Rhythm Regular, No Murmur Respiratory: Normal Breath Sounds, No Rales, No Rhonchi, No Wheezing Gastrointestinal/Abdominal: Soft, Tenderness (LLQ), No Guarding, No Rebound Extremity: Normal ROM, No Pedal Edema, No Calf Tenderness, No Deformity, No Swelling Neurological/Psych: Oriented x3, Normal Speech, Normal Cognition Gait: Steady ED Course And Treatment O2 Sat by Pulse Oximetry: 98 (On RA) Pulse Ox Interpretation: Normal Medical Decision Making Medical Decision Making: Impression : crohn's disease flare up with pain 12/13 Plan: * CT abd/pelvis * Labs * UA * 1 tab PO * Morphine 4 mg IVP * Omnipaque 50 ml PO * pepcid 20 mg IVP * IV fludis * Toradol 30 mg IVP * Zofran 4 mg IVP Disposition Discussed With Dr.: Fior James Doctor Will See Patient In The: Hospital Counseled Patient/Family Regarding: Studies Performed - Disposition Disposition: HOSPITALIZED Disposition Time: 16:13 Condition: GUARDED Forms: [facility] (Persian) - POA Present On Arrival: None - Clinical Impression Clinical Impression: Acute Crohn's disease - Scribe Statement The provider has reviewed the documentation as recorded by the Scribe Stevie Colvin All medical record entries made by the Scribe were at my direction and personally dictated by me. I have reviewed the chart and agree that the record accurately reflects my personal performance of the history, physical exam, medical decision making, and the department course for this patient. I have also personally directed, reviewed, and agree with the discharge instructions and disposition. Decision To Admit - Pt Status Changed To: Hospital Disposition Of: Inpatient - Admit Certification Admit to Inpatient:: After my assessment, the patient will require hospitalization for at least two midnights. This is because of the severity of symptoms shown, intensity of services needed, and/or the medical risk in this patient being treated as an outpatient. - InPatient: Physician Admission Certification:: severe pain, fever, chron'e desease. - . Bed Request Type: Regular Patient Diagnosis: Acute Crohn's disease
[2017-03-15 16:39] LABS: BASO # 0.1 K/uL (0.0-0.2); EOS # 0.2 K/uL (0.0-0.7); EOS % 1.9 % (0.0-4.0); HEMOGLOBIN 16.5 g/dL (12.0-18.0); LYMPH # 1.9 K/uL (1.0-4.3); LYMPH % 16.6 % (20.0-40.0); MEAN CELL VOLUME 87.3 fL (80.0-94.0); MEAN CORPUSCULAR HEMOGLOBIN 28.8 pg (27.0-31.0); MEAN PLATELET VOLUME 8.5 fL (7.2-11.7); MONO % 9.1 % (0.0-10.0); NEUT # 8.2 K/uL (1.8-7.0); NEUT % 71.4 % (50.0-75.0); NRBC % 0.1 % (0.0-2.0); RBC 5.73 Mil/uL (4.40-5.90); RED CELL DISTRIBUTION WIDTH 13.6 % (11.5-14.5); WHITE BLOOD COUNT 11.4 K/uL (4.8-10.8)
[2017-03-15] MEDS ORDERED: Iohexol 300 100 ML IJ ONE (16:46)
[2017-03-15] MEDS ORDERED: Morphine 4 MG/ML VIAL ONE (16:46)
[2017-03-15] MEDS ORDERED: Iohexol 240 (50 ml) ONE (16:46)
[2017-03-15] MEDS ORDERED: Sodium Chloride 0.9% 1,000 ML ONE (16:47)
[2017-03-15] MEDS ORDERED: Belladonna-Phenobarbital ONE (16:47)
[2017-03-15 16:51] LABS: ALB/GLOB RATIO 1.2 (1.0-2.1); ALBUMIN 4.3 g/dL (3.5-5.0); ALT/SGPT 106 U/L (21-72); AST/SGOT 55 U/L (17-59); BLOOD UREA NITROGEN 16 mg/dL (9-20); CALCIUM 8.7 mg/dl (8.6-10.4); GFR AFRICAN-AMERICAN > 60; GFR NON-AFRICAN AMERICAN > 60; LIPASE 91 U/L (23-300)
--- NOTE | 2017-03-15 16:59 | CP.PCM.PN ---
Objective - Vital Signs/Intake and Output Vital Signs (last 24 hours): Temp Pulse Resp BP Pulse Ox 99 F 78 18 159/84 H 98 03/15/17 15:36 03/15/17 15:36 03/15/17 15:36 03/15/17 15:36 03/15/17 16:19 - Medications Medications: Current Medications Bupropion HCl (Wellbutrin Xl) 300 mg PO DAILY [facility] Home Med (Ramelteon [Rozerem]) 8 mg PO HS [facility] Home Med (Simvastatin [Simvastatin]) 10 mg PO DAILY [facility] Montelukast Sodium (Singulair) 10 mg PO DAILY [facility] Rivaroxaban (Xarelto) 20 mg PO DAILY [facility] - Labs Labs: 03/15/17 16:36 03/15/17 16:36 Assessment and Plan (1) Acute Crohn's disease Status: Acute (2) Asthma Status: Chronic (3) Ventricular arrhythmia Status: Chronic (4) Prophylactic measure Status: Acute
[2017-03-15] MEDS ORDERED: Tiotropium 18 mcg Cap For Inhalation IH SCH (17:00)
--- NOTE | 2017-03-15 17:31 | CP.PCM.PN ---
Subjective - Date & Time of Evaluation Date of Evaluation: 03/15/17 Time of Evaluation: 16:40 - Subjective Subjective: Admission for Dr. Hui: Patient is a 36 year old male with a history of depression, asthma, hyperlipidemia, internal defibulator, and Crohn's disease is here with complaints of nausea, vomiting, and diarreha the past 2 days. He says he thinks its a exerbation of his Crohn's disease for which he uses to see a gastroentrologist but had to change physicians due to insurance issues. He says it started with severe cramping stomach pains which led to nausea and vomiting about 3 times. Then he had several episodes of diarrhea which he has had 8-9 episodes since yesterday. He went to see Dr. James who sent him to the hospital for further evaluation and treatment. Patient is very uncomfortable and laying down with his knees bent upward. He says this position has improved his pain however he says he is still in alot of pain. He takes no medication for Crohns on a daily basis and has taken no medication for his pain before he came. PMH: see above PSH: back surgery, internal defibulator FH: denies Objective - Vital Signs/Intake and Output Vital Signs (last 24 hours): Temp Pulse Resp BP Pulse Ox 99 F 78 18 159/84 H 98 03/15/17 15:36 03/15/17 15:36 03/15/17 15:36 03/15/17 15:36 03/15/17 16:19 - Medications Medications: Current Medications Bupropion HCl (Wellbutrin Xl) 300 mg PO DAILY [facility] Home Med (Ramelteon [Rozerem]) 8 mg PO HS [facility] Methylprednisolone (Solu-Medrol) 40 mg IVP Q12H [facility] Stop: 03/17/17 17:16 Methylprednisolone (Solu-Medrol) 40 mg IVP Q12H [facility] Stop: 03/21/17 10:01 Montelukast Sodium (Singulair) 10 mg PO DAILY [facility] Morphine Sulfate (Morphine) 2 mg IVP Q4H PRN PRN Reason: Pain, severe (8-10) Ondansetron HCl (Zofran Inj) 4 mg IVP Q6 PRN PRN Reason: Nausea/Vomiting Pantoprazole Sodium (Protonix Inj) 40 mg IVP Q12H [facility] Rivaroxaban (Xarelto) 20 mg PO DAILY [facility] Rosuvastatin Calcium (Crestor) 2.5 mg PO HS [facility] Sotalol HCl (Betapace) 120 mg PO BID [facility] Tiotropium [place] (Spiriva) 18 mcg IH RQD [facility] - Labs Labs: 03/15/17 16:36 03/15/17 16:36 - Constitutional Appears: Non-toxic, No Acute Distress - Eye Exam Eye Exam: PERRL. absent: Scleral icterus Pupil Exam: NORMAL ACCOMODATION - ENT Exam ENT Exam: Normal Exam - Neck Exam Neck Exam: Normal Inspection - Respiratory Exam Respiratory Exam: Clear to Ausculation Bilateral. absent: Rales, Rhonchi, Wheezes - Cardiovascular Exam Cardiovascular Exam: REGULAR RHYTHM, RRR, +S1, +S2. absent: Gallop, Rubs - GI/Abdominal Exam GI & Abdominal Exam: Guarding, Soft, Tenderness. absent: Distended - Extremities Exam Extremities Exam: Normal Inspection. absent: Pedal Edema - Psychiatric Exam Psychiatric exam: Normal Affect, Normal Mood - Skin Skin Exam: Normal Color Assessment and Plan (1) Acute Crohn's disease Assessment & Plan: Will need to follow up CT scan of the abdomen/pelvis Admitted patient to inpatient/regular floor. Called Dr. James GI consult help appreciated, who asked that patient be started on Protonix 40mg IV Q12H, Solumedrol 40mg IV Q8H x2 days and then Solumedrol 20mg Q12H. Patient started on Pepcid 40mg IV Q12H. Will also do stool stool studies, ESR, CRP, CEA, and C19-9. Morphine 2mg IV Q4H prn Zofran 4mg IV Q6H prn IV Cipro and Flagyll started as well. Follow up morning labs, cbc, ESR, CRP, cmp, mag, phos, tsh, free t4, hepatitis panel, and HIV. patient has a white count which most likely is because of a Crohn's flare up. ALT is also elevated at 106, will get a hepatitis panel. Status: Acute (2) Diarrhea Assessment & Plan: Follow up stool culture, ova and parasite, cdiff, stool electrolytes, Stool OB, and Norovirus. Will need to follow up on the result of each test as they come in. Status: Acute (3) Asthma Assessment & Plan: continue home medication Singular and Duoneb q6h prn Status: Chronic (4) Ventricular arrhythmia Assessment & Plan: one Betapace at home, will continue that medication. Internal defibulator per patient's history. Status: Chronic (5) Afib Assessment & Plan: Questionable history of afib, will repeat ekg in the morning, place on tele as well. continue his home medication of Xarelto and Betapace. Status: Chronic (6) Depression Assessment & Plan: Continue home depression medication. Wellbutrin 300mg daily. Status: Chronic (7) Hyperlipidemia Assessment & Plan: continue statin. Status: Chronic (8) Afib Status: Acute (9) Prophylactic measure Assessment & Plan: on Xarelto 20mg daily SCDs Pepcid 40mg IV Q12H. Status: Acute - Assessment and Plan (Free Text) Assessment: Patient seen and discussed with Dr. Hui.
[2017-03-15] MEDS ORDERED: Albuterol-Ipratrop 3 mg / 0.5 (3 ml) UD INH PRN (17:56)
--- NOTE | 2017-03-15 18:56 | CT ---
PROCEDURE: CT Abdomen and Pelvis with oral and IV contrast. HISTORY: abd pain COMPARISON: None available. TECHNIQUE: Contiguous axial images of the abdomen and pelvis. Oral and IV contrast was administered. Coronal and Sagittal reformats generated and reviewed. Contrast dose: 100 mL Omnipaque 300 Radiation dose: Total exam DLP = 1230.51 mGy-cm. This CT exam was performed using one or more of the following dose reduction techniques: Automated exposure control, adjustment of the mA and/or kV according to patient size, and/or use of iterative reconstruction technique. FINDINGS: LOWER THORAX: No visible consolidation, pleural effusion, or pneumothorax. LIVER: Unremarkable. GALLBLADDER AND BILE DUCTS: Unremarkable. PANCREAS: Unremarkable. SPLEEN: 13 mm splenule. Otherwise unremarkable. ADRENALS: Unremarkable. KIDNEYS AND URETERS: The kidneys enhance symmetrically. No hydronephrosis or obstructing renal calculus. BLADDER: The urinary bladder appears unremarkable. REPRODUCTIVE: Unremarkable. APPENDIX: No secondary signs of acute appendicitis. BOWEL: The stomach is nondistended. The bowel loops appear within normal limits of caliber without evidence of intestinal obstruction. Anastomotic suture material at the rectosigmoid colon. Wall thickening of the rectum; correlate clinically for possibility of proctitis. PERITONEUM: No significant free fluid. No definite free air. LYMPH NODES: No bulky lymphadenopathy identified. VASCULATURE: No aortic aneurysm. BONES: No acute osseous abnormality is detected. OTHER FINDINGS: None. IMPRESSION: Anastomotic suture material at the rectosigmoid colon. Wall thickening of the rectum; correlate clinically for possibility of proctitis.
[2017-03-15] MEDS: metroNIDAZOLE IV 250mg/50 ml 250 MG/50 ML BAG IVPB SCH (20:07)
[2017-03-15] MEDS: MethylPREDNISolone 40 mg Vial IVP SCH (20:21)
[2017-03-15] MEDS ORDERED: MethylPREDNISolone 40 mg Vial ONE (20:22)
[2017-03-15] MEDS: Ciprofloxacin 400mg/200ml D5W 400 MG/200 ML BAG IVPB SCH (20:38)
[2017-03-16] MEDS: Rosuvastatin Calcium 2.5 mg Tab PO SCH ×2 (01:31→21:52)
[2017-03-16] MEDS: metroNIDAZOLE IV 250mg/50 ml 250 MG/50 ML BAG IVPB SCH ×3 (04:12→20:47)
[2017-03-16] MEDS: Ciprofloxacin 400mg/200ml D5W 400 MG/200 ML BAG IVPB SCH ×2 (07:05→18:03)
[2017-03-16] MEDS: MethylPREDNISolone 40 mg Vial IVP SCH ×2 (07:18→17:49)
--- NOTE | 2017-03-16 07:44 | CP.PCM.PN ---
Subjective - Date & Time of Evaluation Date of Evaluation: 03/16/17 Time of Evaluation: 07:44 - Subjective Subjective: Medicine Progress Note for Dr. Hui's service Pt seen and examined at bedside. He has LLQ abdominal pain which radiates to the left flank area. He has not yet had bowel movement. He denies fevers and chills. He states that his pain is getting better. No acute events overnight. Objective - Vital Signs/Intake and Output Vital Signs (last 24 hours): Temp Pulse Resp BP Pulse Ox 98.0 F 68 20 133/86 98 03/16/17 02:15 03/16/17 02:15 03/16/17 02:15 03/16/17 02:15 03/16/17 02:15 - Medications Medications: Current Medications Albuterol/Ipratropium (Duoneb 3 Mg/0.5 Mg (3 Ml) Ud) 3 ml INH RQ6 PRN PRN Reason: Wheezing Bupropion HCl (Wellbutrin Xl) 300 mg PO DAILY [facility] Famotidine (Pepcid) 40 mg IVP Q12H [facility] Last Admin: 03/16/17 05:03 Dose: 40 mg Ciprofloxacin (Cipro 400mg/200ml Dsw) 400 mg in 200 mls @ 133 mls/hr IVPB Q12H [facility] Last Admin: 03/16/17 07:05 Dose: 133 mls/hr Metronidazole (Flagyl) 250 mg in 50 mls @ 100 mls/hr IVPB Q8H [facility] Stop: 03/20/17 20:01 Last Admin: 03/16/17 04:12 Dose: 100 mls/hr Methylprednisolone (Solu-Medrol) 40 mg IVP Q12H [facility] Stop: 03/17/17 17:16 Last Admin: 03/16/17 07:18 Dose: 40 mg Montelukast Sodium (Singulair) 10 mg PO DAILY [facility] Last Admin: 03/15/17 18:55 Dose: 10 mg Morphine Sulfate (Morphine) 2 mg IVP Q4H PRN PRN Reason: Pain, severe (8-10) Last Admin: 03/16/17 03:45 Dose: 2 mg Ondansetron HCl (Zofran Inj) 4 mg IVP Q6 PRN PRN Reason: Nausea/Vomiting Pneumococcal Polyvalent Vaccine (Pneumovax 23 Vaccine) 0.5 ml IM .ONCE ONE Stop: 03/18/17 10:01 Rivaroxaban (Xarelto) 20 mg PO DAILY [facility] Rosuvastatin Calcium (Crestor) 2.5 mg PO HS [facility] Last Admin: 03/16/17 01:31 Dose: 2.5 mg Sotalol HCl (Betapace) 120 mg PO BID [facility] Last Admin: 03/15/17 21:33 Dose: Not Given Tiotropium [place] (Spiriva) 18 mcg IH RQD [facility] Last Admin: 03/15/17 21:33 Dose: Not Given Zolpidem Tartrate (Ambien) 5 mg PO HS PRN PRN Reason: Insomnia Last Admin: 03/15/17 23:22 Dose: 5 mg - Labs Labs: 03/15/17 16:36 03/15/17 16:36 - Constitutional Appears: No Acute Distress - Head Exam Head Exam: ATRAUMATIC, NORMOCEPHALIC - Eye Exam Eye Exam: EOMI, Normal appearance - ENT Exam ENT Exam: Mucous Membranes Moist - Respiratory Exam Respiratory Exam: Clear to Ausculation Bilateral, NORMAL BREATHING PATTERN - Cardiovascular Exam Cardiovascular Exam: REGULAR RHYTHM, +S1, +S2 - GI/Abdominal Exam GI & Abdominal Exam: Soft, Tenderness (LLQ), Normal Bowel Sounds - Extremities Exam Extremities Exam: absent: Calf Tenderness, Pedal Edema - Neurological Exam Neurological Exam: Alert, Awake, Oriented x3 - Psychiatric Exam Psychiatric exam: Normal Affect, Normal Mood - Skin Skin Exam: Dry, Warm Assessment and Plan - Assessment and Plan (Free Text) Plan: Acute Crohn's disease CT abdomen/pelvis-rectal wall thickening with suspicion for proctotitis GI Consulted- Dr. James -help appreciated Solumedrol 40mg IV Q8H x2 days and then Solumedrol 20mg Q12H Pepcid 40mg IV Q12H Plan for colonoscopy tomorrow 03/17/17 Bowel prep NPO Follow up stool studies Morphine 2mg IV Q4H prn Zofran 4mg IV Q6H prn IV Cipro IV Flagyll WBC 12.0 CEA 3.8 CA 19-9 <1.4 CRP 5.08 Elevated LFT Hepatitis panel negative HIV negative Diarrhea Follow up stool culture, ova and parasite, cdiff, stool electrolytes, Stool OB, and Norovirus Patient has not had a BM Asthma continue home medication Singular Spiriva Duoneb q6h prn Ventricular arrhythmia Continue home medication Betapace- 120mg PO BID Internal defibulator per patient's history. Afib Continue his home medication Xarelto 20mg PO daily Betapace 120mg PO BID Depression Continue home depression medication. Wellbutrin XL 300mg daily Hyperlipidemia Crestor 2.5mg PO QHS Prophylactic measure on Xarelto 20mg daily SCDs Pepcid 40mg IV Q12H Ambien prn insomnia Case discussed with Dr. Hui. All management as per Dr. Hui.
[2017-03-16 07:59] LABS: BASO % 0.2 % (0.0-2.0); LYMPH # 0.8 K/uL (1.0-4.3); MEAN CELL VOLUME 87.2 fL (80.0-94.0); MEAN CORPUSCULAR HEMOGLOBIN 29.6 pg (27.0-31.0); MEAN CORPUSCULAR HGB CONC 33.9 g/dL (33.0-37.0); MEAN PLATELET VOLUME 8.7 fL (7.2-11.7); MONO # 0.3 K/uL (0.0-0.8); MONO % 2.2 % (0.0-10.0); NEUT # 10.9 K/uL (1.8-7.0); NEUT % 90.6 % (50.0-75.0); PLATELET COUNT 250 K/uL (130-400); RBC 5.42 Mil/uL (4.40-5.90)
[2017-03-16 08:34] LABS: ALB/GLOB RATIO 1.2 (1.0-2.1); ALBUMIN 4.2 g/dL (3.5-5.0); ALT/SGPT 88 U/L (21-72); AST/SGOT 39 U/L (17-59); BLOOD UREA NITROGEN 12 mg/dL (9-20); CALCIUM 8.5 mg/dl (8.6-10.4); GFR AFRICAN-AMERICAN > 60; GFR NON-AFRICAN AMERICAN > 60; MAGNESIUM 1.6 mg/dL (1.6-2.3)
[2017-03-16 08:53] LABS: FREE T4 1.34 ng/dL (0.78-2.19)
[2017-03-16 08:56] LABS: HEPATITIS B SURFACE AG NEGATIVE (NEGATIVE)
[2017-03-16 09:00] LABS: LYMPHOCYTE 3 % (20-40); MONOCYTE 1 % (0-10); NEUTROPHIL 96 % (50-75); PLATELET ESTIMATE NORMAL (NORMAL); TOTAL CELLS COUNTED 100
[2017-03-16 09:01] LABS: HEPATITIS A IGM NEGATIVE (NEGATIVE); HEPATITIS B CORE AB Negative (NEGATIVE)
[2017-03-16 09:12] LABS: HEPATITIS C ANTIBODY Negative (NEGATIVE)
[2017-03-16] MEDS: buPROPion 150 mg/24 Hours XL Tab PO SCH (10:52)
[2017-03-16 11:34] LABS: BARBITURATES, UR NEGATIVE (NEGATIVE); BENZODIAZEPINES, UR NEGATIVE (NEGATIVE); PHENCYCLIDINE, UR NEGATIVE (NEGATIVE)
[2017-03-16 12:09] LABS: OPIATES, UR POSITIVE (NEGATIVE)
[2017-03-16] MEDS ORDERED: Peg-Electrolyte Oral Soln 4L (Golytely) PO ONE (13:00)
[2017-03-16] MEDS ORDERED: Bisacodyl 5mg EC Tab PO ONE (17:00)
[2017-03-17] MEDS: metroNIDAZOLE IV 250mg/50 ml 250 MG/50 ML BAG IVPB SCH ×2 (04:03→12:30)
[2017-03-17] MEDS: MethylPREDNISolone 40 mg Vial IVP SCH (05:17)
[2017-03-17] MEDS: Ciprofloxacin 400mg/200ml D5W 400 MG/200 ML BAG IVPB SCH (06:54)
[2017-03-17 07:25] LABS: INR 1.4; PROTHROMBIN TIME 15.7 SECONDS (9.7-12.2)
--- NOTE | 2017-03-17 07:31 | CP.PCM.PN ---
Subjective - Date & Time of Evaluation Date of Evaluation: 03/17/17 Time of Evaluation: 07:45 - Subjective Subjective: PGY 2 Medicine Note- Dr. Hui's service Patient seen and examined in no acute distress. He denies current abdominal pain. Patient is to have colonoscopy this morning. Patient states that he is hungry but otherwise has no complaints. He denies chest pain, palpitations, headaches, nausea or vomiting at this time. Objective - Vital Signs/Intake and Output Vital Signs (last 24 hours): Temp Pulse Resp BP Pulse Ox 98.3 F 69 20 125/74 95 03/17/17 00:00 03/17/17 00:00 03/17/17 00:00 03/17/17 00:00 03/17/17 00:00 Intake and Output: 03/17/17 03/17/17 06:59 18:59 Intake Total 4650 Balance 4650 - Medications Medications: Current Medications Albuterol/Ipratropium (Duoneb 3 Mg/0.5 Mg (3 Ml) Ud) 3 ml INH RQ6 PRN PRN Reason: Wheezing Bupropion HCl (Wellbutrin Xl) 300 mg PO DAILY [facility] Last Admin: 03/16/17 10:52 Dose: 300 mg Famotidine (Pepcid) 40 mg IVP Q12H [facility] Last Admin: 03/17/17 05:15 Dose: 40 mg Ciprofloxacin (Cipro 400mg/200ml Dsw) 400 mg in 200 mls @ 133 mls/hr IVPB Q12H [facility] Last Admin: 03/17/17 06:54 Dose: 133 mls/hr Metronidazole (Flagyl) 250 mg in 50 mls @ 100 mls/hr IVPB Q8H [facility] Stop: 03/20/17 20:01 Last Admin: 03/17/17 04:03 Dose: 100 mls/hr Methylprednisolone (Solu-Medrol) 40 mg IVP Q12H [facility] Stop: 03/17/17 17:16 Last Admin: 03/17/17 05:17 Dose: 40 mg Montelukast Sodium (Singulair) 10 mg PO DAILY [facility] Last Admin: 03/16/17 10:57 Dose: 10 mg Morphine Sulfate (Morphine) 2 mg IVP Q4H PRN PRN Reason: Pain, severe (8-10) Last Admin: 03/17/17 00:43 Dose: 2 mg Ondansetron HCl (Zofran Inj) 4 mg IVP Q6 PRN PRN Reason: Nausea/Vomiting Ondansetron HCl (Zofran Inj) 8 mg IVP Q6 [facility] Last Admin: 03/17/17 06:12 Dose: 8 mg Pneumococcal Polyvalent Vaccine (Pneumovax 23 Vaccine) 0.5 ml IM .ONCE ONE Stop: 03/18/17 10:01 Rosuvastatin Calcium (Crestor) 2.5 mg PO HS [facility] Last Admin: 03/16/17 21:52 Dose: 2.5 mg Sotalol HCl (Betapace) 120 mg PO BID [facility] Last Admin: 03/16/17 17:48 Dose: 120 mg Tiotropium [place] (Spiriva) 18 mcg IH RQD [facility] Last Admin: 03/15/17 21:33 Dose: Not Given Zolpidem Tartrate (Ambien) 5 mg PO HS PRN PRN Reason: Insomnia Last Admin: 03/16/17 21:52 Dose: 5 mg - Labs Labs: 03/16/17 07:51 03/16/17 07:51 PT 15.7 SECONDS (9.7-12.2) H 03/17/17 06:55 INR 1.4 03/17/17 06:55 APTT 36 SECONDS (21-34) H 03/17/17 06:55 - Constitutional Appears: Non-toxic, No Acute Distress - Head Exam Head Exam: ATRAUMATIC, NORMAL INSPECTION - Eye Exam Eye Exam: EOMI, Normal appearance, PERRL Pupil Exam: NORMAL ACCOMODATION - ENT Exam ENT Exam: Mucous Membranes Moist - Neck Exam Neck Exam: Full ROM - Respiratory Exam Respiratory Exam: NORMAL BREATHING PATTERN. absent: Wheezes - Cardiovascular Exam Cardiovascular Exam: REGULAR RHYTHM, +S1, +S2 - GI/Abdominal Exam GI & Abdominal Exam: Soft, Normal Bowel Sounds. absent: Tenderness - Extremities Exam Extremities Exam: Full ROM - Back Exam Back Exam: Full ROM, NORMAL INSPECTION - Neurological Exam Neurological Exam: Alert, Awake, Oriented x3 - Psychiatric Exam Psychiatric exam: Normal Affect, Normal Mood Assessment and Plan - Assessment and Plan (Free Text) Assessment: Acute Crohn's disease CT abdomen/pelvis-rectal wall thickening with suspicion for proctotitis GI Consulted- Dr. James -help appreciated Solumedrol 40mg IV Q8H x2 days and then Solumedrol 20mg Q12H Pepcid 40mg IV Q12H Colonoscopy 03/17/17: 9 mm polyp in the proximal ascending colon. Non bleeding external and internal hemorrhoids. Patent ileo-colonic anatomosis. Recommendations for follow up in the office once time for discharge. Follow up stool studies Morphine 2mg IV Q4H prn Zofran 4mg IV Q6H prn IV Cipro IV Flagyl WBC 12.0 CEA 3.8 CA 19-9 <1.4 CRP 5.08 Elevated LFT Hepatitis panel negative HIV negative Diarrhea Follow up stool culture, ova and parasite, cdiff, stool electrolytes, Stool OB, and Norovirus Patient has not had a BM Asthma continue home medication Singular Spiriva Duoneb q6h prn Ventricular arrhythmia Continue home medication Betapace- 120mg PO BID Internal defibulator per patient's history. Afib Continue his home medication Xarelto 20mg PO daily Betapace 120mg PO BID Depression Continue home depression medication. Wellbutrin XL 300mg daily Hyperlipidemia Crestor 2.5mg PO QHS Prophylactic measure on Xarelto 20mg daily SCDs Pepcid 40mg IV Q12H Ambien prn insomnia Discharge Order Patient is medically stable for discharge home. Patient to follow up with primary medical doctor within one week of discharge. Patient to follow up with [employer] Dr. James within six weeks of discharge. Patient may resume home meds. Patient to be written a prescription for Analpram HC Cream. He is to apply externally to affected area where hemorrhoids are located twice a day for ten weeks. If symptoms return, go to the emergency room. Instructions explained to patient, who is aware. Case discussed with Dr. Hui. All management as per Dr. Hui.
[2017-03-17 07:36] LABS: BASO # 0.1 K/uL (0.0-0.2); BASO % 0.3 % (0.0-2.0); EOS % 0.1 % (0.0-4.0); HEMOGLOBIN 15.2 g/dL (12.0-18.0); LYMPH % 5.6 % (20.0-40.0); MEAN CELL VOLUME 87.9 fL (80.0-94.0); MEAN CORPUSCULAR HEMOGLOBIN 29.7 pg (27.0-31.0); MEAN CORPUSCULAR HGB CONC 33.8 g/dL (33.0-37.0); MEAN PLATELET VOLUME 9.3 fL (7.2-11.7); MONO # 0.7 K/uL (0.0-0.8); MONO % 4.1 % (0.0-10.0); NEUT # 15.6 K/uL (1.8-7.0); NEUT % 89.9 % (50.0-75.0); PLATELET COUNT 262 K/uL (130-400); RBC 5.11 Mil/uL (4.40-5.90); RED CELL DISTRIBUTION WIDTH 14.4 % (11.5-14.5); WHITE BLOOD COUNT 17.4 K/uL (4.8-10.8)
[2017-03-17 07:40] LABS: ALB/GLOB RATIO 1.3 (1.0-2.1); ALBUMIN 3.9 g/dL (3.5-5.0); ALT/SGPT 71 U/L (21-72); AST/SGOT 30 U/L (17-59); BLOOD UREA NITROGEN 12 mg/dL (9-20); CALCIUM 8.6 mg/dl (8.6-10.4); GFR AFRICAN-AMERICAN > 60; GFR NON-AFRICAN AMERICAN > 60
[2017-03-17 07:54] VITALS: TEMP 98.4
[2017-03-17 09:42] LABS: LYMPHOCYTE 11 % (20-40); MONOCYTE 3 % (0-10); NEUTROPHIL 86 % (50-75); PLATELET ESTIMATE NORMAL (NORMAL); TOTAL CELLS COUNTED 100
[2017-03-17] MEDS: buPROPion 150 mg/24 Hours XL Tab PO SCH (10:18)
[2017-03-17] MEDS ORDERED: Propofol 10 mg/ml Inj (20 ML) ONE (11:11)
[2017-03-17] MEDS ORDERED: Lactated Ringer's 1,000 ML IV ONE (11:15)
[2017-03-17 12:05] VITALS: PULSE 63
[2017-03-17 12:19] VITALS: BP 129/83; RESP 18; O2SAT 98
[2017-03-18] MEDS ORDERED: Pneumococcal 23-Valent Vaccine IM ONE (10:00)
[2017-03-18] MEDS ORDERED: Influenza Vaccine 60 mcg/0.5 mL SYR (4YR UP) IM ONE (10:00)
[2017-03-18] MEDS ORDERED: MethylPREDNISolone 40 mg Vial IVP SCH (10:00)
== END 2017-03-17 13:53 | disposition home or self-care (01) | DRG 179 ==
LOC: C.ER 15:22 → C.9E 16:17 → C.3T 03-16 01:19
PROVIDERS: ADMIT Internal Medicine Pulmonary Disease; ATTEND Internal Medicine Pulmonary Disease
PROC: 0DBK8ZZ Excision of Ascending Colon, Via Natural or Artificial Opening Endoscopic (ICD-10-PCS; principal; 2017-03-17 11:15)
DX: K50.911 Crohn's disease, unspecified, with rectal bleeding (principal); I48.91 Unspecified atrial fibrillation; E78.5 Hyperlipidemia, unspecified; F32.9 Major depressive disorder, single episode, unspecified; J45.909 Unspecified asthma, uncomplicated; K63.5 Polyp of colon; K64.8 Other hemorrhoids

== ENCOUNTER 2017-04-26 14:44 | Observation (INO) | payer MEDICAID, OTHER ==
[2017-04-26 14:44] VITALS: BMI 31.9
--- NOTE | 2017-04-26 16:38 | C.PDOC ---
History Of Present Illness Patient is a 37 year old male who presents to the ER for evaluation of injuries after falling down the stairs today. Reports he felt suddenly dizzy when walking down the stairs prior to falling. Patient hit the back of his head and right knee during the fall. No LOC. Denies any weakness, nausea, vomiting, or headache. Of note, patient has a defibrillator. PMD: Dr. Escobedo - [facility] Time Seen by Provider: 04/26/17 16:12 Chief Complaint (Nursing): Trauma History Per: Patient History/Exam Limitations: no limitations Injury Occurred (Timing): Today @ (8AM) Associated Symptoms: Dizziness Past Medical History Reviewed: Historical Data, Nursing Documentation, Vital Signs Vital Signs: Last Vital Signs Temp 98.4 F 04/26/17 15:40 Pulse 90 04/26/17 15:40 Resp 18 04/26/17 15:40 BP 123/72 04/26/17 15:40 Pulse Ox 96 04/26/17 18:59 - Medical History PMH: Asthma, Atrial Fibrillation (? PT IS UNSURE), Back Problems (HERNIATED DISCS), Crohn's Disease, Depression, HTN, Hypercholesterolemia, Hyperlipidemia Denies: Diabetes, Hepatitis, HIV, Chronic Kidney Disease, Seizures, Sexually Transmitted Disease Surgical History: Back Surgery Other Surgeries: Colon resection, defibrillator placement - [facility] Procedures EXCISION OF ASCENDING COLON, ENDO (03/15/17) GROUP PSYCHOTHERAPY (09/14/16) INDIV PSYCHOTHERAPY FOR SUBSTANCE ABUSE TREATMENT, SUPPORT (09/14/16) INDIVIDUAL PSYCHOTHERAPY, SUPPORTIVE (09/14/16) MEDICATION MANAGEMENT (09/14/16) MEDS MGMT FOR SUBSTANCE ABUSE TREATMENT, OTH REPL MED (09/14/16) Family History: States: [place], CAD, Diabetes, Hypertension - Social History Hx Tobacco Use: Yes (1/2 ppd for 24 years) Hx Alcohol Use: Yes Hx Substance Use: Yes (smokes marijuana) - Immunization History Hx Tetanus Toxoid Vaccination: No Hx Influenza Vaccination: No Hx Pneumococcal Vaccination: No Review Of Systems Except As Marked, All Systems Reviewed And Found Negative. Constitutional: Negative for: Fever Cardiovascular: Negative for: Chest Pain Respiratory: Negative for: Shortness of Breath Gastrointestinal: Negative for: Nausea, Vomiting Musculoskeletal: Positive for: Other (right knee pain) Neurological: Positive for: Dizziness (prior to fall). Negative for: Weakness, Headache, Other (LOC) Physical Exam - Physical Exam Appears: Non-toxic, No Acute Distress, Other (Obese male) Skin: Normal Color, Warm, Dry, No Ecchymosis Head: Atraumatic, Normacephalic, No Abrasion, No Laceration, No Other (contusion , hematoma) Eye(s): bilateral: Normal Inspection, PERRL, EOMI Nose: Normal Oral Mucosa: Moist Neck: Normal ROM, No Midline Cervical Tenderness, Supple Chest: Symmetrical Cardiovascular: Rhythm Regular, No Murmur, Other (Defibrillator in left chest) Respiratory: Normal Breath Sounds, No Accessory Muscle Use Gastrointestinal/Abdominal: Normal Exam, Soft, No Tenderness Back: Normal Inspection, No CVA Tenderness, No Vertebral Tenderness Extremity: Tenderness (mild tenderness to right knee), No Deformity, No Swelling Neurological/Psych: Oriented x3, Normal Speech, Normal Cranial Nerves, Normal Motor, Normal Sensation Gait: Steady ED Course And Treatment - Laboratory Results Result Diagrams: 04/26/17 17:05 04/26/17 17:05 Lab Interpretation: Normal (trop neg.) ECG: Interpreted By Me ECG Rhythm: Sinus Rhythm ECG Interpretation: Normal Rate From EC O2 Sat by Pulse Oximetry: 96 (RA) Pulse Ox Interpretation: Normal - Radiology CXR: Viewed By Me, Read By Radiologist CXR Interpretation: Yes: No Acute Disease, Other (Left-sided AICD) - Other Rad x-ray right knee X-Ray: Viewed By Me, Read By Radiologist Interpretation: No acute displaced fracture, dislocation, or significant joint effusion identified. - CT Scan/US CT head Other Rad Studies (CT/US): Read By Radiologist, Radiology Report Reviewed CT/US Interpretation: IMPRESSION: Small right scalp hematoma. No acute intracranial pathology identified. Reevaluation Time: 19:02 Reassessment Condition: Improved - Physician Consult Information Outcome Of Conversation: 1900: d/w Dr. Villaseñor who recommends adm to Dr. Duron who agrees to admit. Plan interrogate defibrillator Medical Decision Making Medical Decision Making: Time: 16:36 Initial Plan: * EKG * CMP * Urine drug screen * Troponin I * CBC * Urinalysis * Chest x-ray * X-ray of right knee * CT Head * Motrin 600 mg PO * Reevaluation Percocet PO ice pack to knee 1730: d/w silvino Melendez to d/c home with outpatient f/u. pt with OLD torn meniscus R knee dx by ? asks for Ortho referral LOW susp of defib or heart rate etiology of pt's gonzalez-out (without LOC) as he usually has NO symptoms prior to defib shock (feels a buzzing of the device just prior). Today felt more like standing from sitting and no cardiac/chest symptoms Plan defib interrogation Disposition Doctor Will See Patient In The: Hospital Counseled Patient/Family Regarding: Studies Performed, Diagnosis - Disposition Referrals: Jose E Escobedo MD, PhD [Staff Provider] - Aime Martinez III, MD [Staff Provider] - Disposition: HOME/ ROUTINE Disposition Time: 18:34 Condition: GOOD Instructions: Contusion (DC), Knee Sprain (DC) Forms: [facility] (Slovak) - Clinical Impression Clinical Impression: Head contusion, Knee contusion - Scribe Statement The provider has reviewed the documentation as recorded by the Ryan Crawford Provider Attestation: All medical record entries made by the Ryan were at my direction and personally dictated by me. I have reviewed the chart and agree that the record accurately reflects my personal performance of the history, physical exam, medical decision making, and the department course for this patient. I have also personally directed, reviewed, and agree with the discharge instructions and disposition.
--- NOTE | 2017-04-26 16:59 | RAD ---
PROCEDURE: Right Knee Radiographs. HISTORY: COMPARISON: None available. FINDINGS: BONES: No acute displaced fracture. JOINTS: No dislocation. JOINT EFFUSION: No significant joint effusion. OTHER FINDINGS: None. IMPRESSION: No acute displaced fracture, dislocation, or significant joint effusion identified. If symptoms persist, or if there is continued clinical concern, x-ray follow-up in 7-10 days should be considered.
[2017-04-26 17:09] LABS: BASO # 0.1 K/uL (0.0-0.2); BASO % 1.1 % (0.0-2.0); EOS # 0.1 K/uL (0.0-0.7); EOS % 1.5 % (0.0-4.0); HEMOGLOBIN 15.8 g/dL (12.0-18.0); LYMPH # 1.7 K/uL (1.0-4.3); LYMPH % 19.9 % (20.0-40.0); MEAN CELL VOLUME 87.2 fL (80.0-94.0); MEAN CORPUSCULAR HGB CONC 34.4 g/dL (33.0-37.0); MEAN PLATELET VOLUME 8.2 fL (7.2-11.7); MONO # 0.9 K/uL (0.0-0.8); MONO % 10.2 % (0.0-10.0); NEUT # 5.9 K/uL (1.8-7.0); NEUT % 67.3 % (50.0-75.0); RBC 5.27 Mil/uL (4.40-5.90); RED CELL DISTRIBUTION WIDTH 14.4 % (11.5-14.5); WHITE BLOOD COUNT 8.7 K/uL (4.8-10.8)
--- NOTE | 2017-04-26 17:14 | RAD ---
HISTORY: SOB COMPARISON: Chest x-ray performed 11/15/16, CTA chest performed 11/15/16 TECHNIQUE: Chest, one view. FINDINGS: Examination limited by habitus. LUNGS: No focal consolidation. Please note that chest x-ray has limited sensitivity for the detection of pulmonary masses. PLEURA: No significant pleural effusion identified. No definite pneumothorax . CARDIOVASCULAR: Left-sided AICD. Heart size appears top normal. OSSEOUS STRUCTURES: No acute osseous abnormality identified. VISUALIZED UPPER ABDOMEN: Unremarkable. OTHER FINDINGS: None. IMPRESSION: Left-sided AICD.
[2017-04-26 17:35] LABS: ALB/GLOB RATIO 1.3 (1.0-2.1); ALBUMIN 4.2 g/dL (3.5-5.0); ALT/SGPT 56 U/L (21-72); AST/SGOT 41 U/L (17-59); BLOOD UREA NITROGEN 13 mg/dL (9-20); CALCIUM 9.6 mg/dl (8.6-10.4); GFR AFRICAN-AMERICAN > 60; GFR NON-AFRICAN AMERICAN > 60
--- NOTE | 2017-04-26 17:51 | CT ---
PROCEDURE: CT HEAD WITHOUT CONTRAST. HISTORY: fall, occipital contusion COMPARISON: None available. TECHNIQUE: Axial computed tomography images were obtained through the head/brain without intravenous contrast. Radiation dose: Total exam DLP = 932.11 mGy-cm. This CT exam was performed using one or more of the following dose reduction techniques: Automated exposure control, adjustment of the mA and/or kV according to patient size, and/or use of iterative reconstruction technique. FINDINGS: HEMORRHAGE: No intracranial hemorrhage. BRAIN: No mass effect or edema. No atrophy or chronic microvascular ischemic changes. VENTRICLES: No hydrocephalus. CALVARIUM: Unremarkable. PARANASAL SINUSES: Unremarkable as visualized. No significant inflammatory changes. MASTOID AIR CELLS: Unremarkable as visualized. No inflammatory changes. OTHER FINDINGS: Small right scalp hematoma. IMPRESSION: Small right scalp hematoma. No acute intracranial pathology identified.
[2017-04-26 18:11] LABS: URINE BACTERIA RARE (<OCC); URINE BILIRUBIN NEGATIVE (NEGATIVE); URINE CLARITY Hazy (Clear); URINE COLOR Yellow (YELLOW); URINE GLUCOSE (UA) NORMAL (Normal); URINE LEUKOCYTE ESTERASE NEG Leu/uL (Negative); URINE PROTEIN NEGATIVE (NEGATIVE); URINE UROBILINOGEN NORMAL mg/dL (0.2-1.0)
[2017-04-26 18:12] LABS: URINE BLOOD TRACE (NEGATIVE)
[2017-04-26 18:31] LABS: BARBITURATES, UR NEGATIVE (NEGATIVE); BENZODIAZEPINES, UR NEGATIVE (NEGATIVE); OPIATES, UR NEGATIVE (NEGATIVE); PHENCYCLIDINE, UR NEGATIVE (NEGATIVE)
[2017-04-26] MEDS ORDERED: Oxycodone/Acetaminophen 5/325 mg Tab PO STA (18:31)
[2017-04-26] MEDS ORDERED: Oxycodone/Acetaminophen 5/325 mg Tab ONE ×2 (19:29→23:22)
[2017-04-26] MEDS: Oxycodone/Acetaminophen 5/325 mg Tab PO PRN (23:25)
[2017-04-27] MEDS ORDERED: Oxycodone/Acetaminophen 5/325 mg Tab ONE ×2 (04:23→10:50)
[2017-04-27] MEDS: Oxycodone/Acetaminophen 5/325 mg Tab PO PRN ×2 (04:23→10:53)
[2017-04-27] MEDS ORDERED: Tiotropium 18 mcg Cap For Inhalation IH SCH ×2 (10:00)
[2017-04-27] MEDS ORDERED: Rosuvastatin Calcium 2.5 mg Tab PO ONE (10:00)
[2017-04-27] MEDS ORDERED: Home Med 1 UNIT (Simvastatin [Simvastatin] 10 MG) PO SCH (10:00)
--- NOTE | 2017-04-27 10:38 | CP.PCM.CON ---
<Kami Romero - Last Filed: 04/27/17 17:54> History of Present Illness - History of Present Illness History of Present Illness: Cardiology consult note for Dr. Casillas: Patient was seen and examined at bedside. Cardiology was consulted for syncope. Patient is a 36 year old male with a history of depression, asthma, hyperlipidemia, internal defibrillator, and Crohn's disease. He presented to the ER for evaluation of injuries after falling down the stairs yesterday and headaches after the incident. He states he has been having these episodes for many years. Reports he felt suddenly dizzy when walking down the stairs prior to falling. Patient hit the back of his head and right knee during the fall. No LOC. Patient states that lately he has been having chest pain in the midepigastric region when he has emotional stress. He reports being SOB that he feels has been getting worse with exertion. He can only walk about a block and a half and it is difficult to walk up stairs. He also reports palpitations that come and go about 2-3 times a month and only last a few seconds. Denies at this moment. Patient reports that the AICD has not shocked him for a couple years. Last visit with cardiology (Dr. Brambila) was in February 2017. The device was checked at this time. Review of Systems - Constitutional Constitutional: absent: Chills, Fever - Cardiovascular Cardiovascular: Chest Pain. absent: Chest Pain at Rest - Respiratory Respiratory: Dyspnea on Exertion. absent: Cough - Gastrointestinal Gastrointestinal: Heartburn. absent: Abdominal Pain Past Patient History - Past Medical History & Family History Past Medical History?: Yes - Past Social History Smoking Status: Light Smoker < 10 Cigarettes Daily - CARDIAC Hx Atrial Fibrillation: Yes (? PT IS UNSURE) Hx Hypercholesterolemia: Yes Hx Hypertension: Yes - PULMONARY Hx Asthma: Yes - NEUROLOGICAL Hx Seizures: No - HEENT Hx HEENT Problems: No - RENAL Hx Chronic Kidney Disease: No - ENDOCRINE/METABOLIC Hx Endocrine Disorders: No - HEMATOLOGICAL/ONCOLOGICAL Hx Human Immunodeficiency Virus (HIV): No - INTEGUMENTARY Hx Dermatological Problems: No - MUSCULOSKELETAL/RHEUMATOLOGICAL Hx Musculoskeletal Disorders: Yes Hx Back Pain: Yes Hx Falls: No - GASTROINTESTINAL Hx Crohn's Disease: Yes - GENITOURINARY/GYNECOLOGICAL Hx Sexually Transmitted Disorders: No - PSYCHIATRIC Hx Depression: Yes Hx Substance Use: Yes (smokes marijuana) - SURGICAL HISTORY Hx Surgeries: Yes Other/Comment: INTERNAL DEFIB INSERTION. BACK SX, COLON RESECTION - ANESTHESIA Hx Anesthesia: Yes Hx Anesthesia Reactions: No Hx Malignant Hyperthermia: No Meds Allergies/Adverse Reactions: Allergies Allergy/AdvReac Type Severity Reaction Status Date / Time No Known Allergies Allergy Verified 03/15/17 15:39 - Medications Medications: Current Medications Bupropion HCl (Wellbutrin Xl) 300 mg PO DAILY [facility] Famotidine (Pepcid) 20 mg PO DAILY [facility] Montelukast Sodium (Singulair) 10 mg PO DAILY [facility] Oxycodone/Acetaminophen (Percocet 5/325 Mg Tab) 2 tab PO Q4H PRN PRN Reason: Pain, severe (8-10) Stop: 04/29/17 22:43 Last Admin: 04/27/17 04:23 Dose: 2 tab Rivaroxaban (Xarelto) 20 mg PO DAILY [facility] Rosuvastatin Calcium (Crestor) 2.5 mg PO HS [facility] Sotalol HCl (Betapace) 120 mg PO BID [facility] Tiotropium [place] (Spiriva) 18 mcg IH RQD [facility] Physical Exam - Constitutional Appears: Non-toxic, No Acute Distress Results - Vital Signs Recent Vital Signs: Last Vital Signs Temp 98.4 F 04/27/17 10:29 Pulse 72 04/27/17 10:29 Resp 18 04/27/17 10:29 BP 144/98 H 04/27/17 10:29 Pulse Ox 97 04/27/17 10:29 - Labs Result Diagrams: 04/26/17 17:05 04/26/17 17:05 Labs: Laboratory Results - last 24 hr 04/26/17 04/26/17 04/26/17 17:05 17:05 18:02 WBC 8.7 RBC 5.27 Hgb 15.8 Hct 46.0 MCV 87.2 MCH 30.0 MCHC 34.4 RDW 14.4 Plt Count 232 MPV 8.2 Neut % (Auto) 67.3 Lymph % (Auto) 19.9 L [place] % (Auto) 10.2 H Eos % (Auto) 1.5 Baso % (Auto) 1.1 Neut # (Auto) 5.9 Lymph # (Auto) 1.7 [place] # (Auto) 0.9 H Eos # (Auto) 0.1 Baso # (Auto) 0.1 Sodium 139 Potassium 3.9 Chloride 101 Carbon Dioxide 26 Anion Gap 15 BUN 13 Creatinine 0.8 Est GFR ( Amer) > 60 Est GFR (Non-Af Amer) > 60 Random Glucose 73 L Calcium 9.6 Total Bilirubin 0.5 AST 41 ALT 56 Alkaline Phosphatase 64 Troponin I < 0.0120 Total Protein 7.3 Albumin 4.2 Globulin 3.1 Albumin/Globulin Ratio 1.3 Urine Color Yellow Urine Clarity Hazy Urine pH 5.0 Ur Specific [place] 1.024 Urine Protein Negative Urine Glucose (UA) Normal Urine Ketones Negative Urine Blood Trace H Urine Nitrate Negative Urine Bilirubin Negative Urine Urobilinogen Normal Ur Leukocyte Esterase Neg Urine WBC (Auto) < 1 Urine RBC (Auto) 3 Urine Bacteria Rare Urine Opiates Screen Urine Methadone Screen Ur Barbiturates Screen Ur Phencyclidine Scrn Ur Amphetamines Screen U Benzodiazepines Scrn U Oth Cocaine Metabols U Cannabinoids Screen 04/26/17 04/26/17 04/27/17 18:02 23:26 06:46 WBC RBC Hgb Hct MCV MCH MCHC RDW Plt Count MPV Neut % (Auto) Lymph % (Auto) [place] % (Auto) Eos % (Auto) Baso % (Auto) Neut # (Auto) Lymph # (Auto) [place] # (Auto) Eos # (Auto) Baso # (Auto) Sodium Potassium Chloride Carbon Dioxide Anion Gap BUN Creatinine Est GFR ( Amer) Est GFR (Non-Af Amer) Random Glucose Calcium Total Bilirubin AST ALT Alkaline Phosphatase Troponin I < 0.0120 < 0.0120 Total Protein Albumin Globulin Albumin/Globulin Ratio Urine Color Urine Clarity Urine pH Ur Specific [place] Urine Protein Urine Glucose (UA) Urine Ketones Urine Blood Urine Nitrate Urine Bilirubin Urine Urobilinogen Ur Leukocyte Esterase Urine WBC (Auto) Urine RBC (Auto) Urine Bacteria Urine Opiates Screen Negative Urine Methadone Screen Negative Ur Barbiturates Screen Negative Ur Phencyclidine Scrn Negative Ur Amphetamines Screen Negative U Benzodiazepines Scrn Negative U Oth Cocaine Metabols Negative U Cannabinoids Screen Positive H Assessment & Plan - Assessment and Plan (Free Text) Assessment: Afib Continue his home medication Xarelto 20mg PO daily Betapace (Sotalol) 120mg PO BID Patient has AICD in place (last checked Feb 2017) f/u Echo results Troponin negative x 3 Will discuss with with Dr. Casillas for further recommendations <Topher Casillas - Last Filed: 04/28/17 20:28> History of Present Illness - History of Present Illness History of Present Illness: Patient seen and valuated. D/W the ,edical resident. Plan of care as documented Meds - Medications Medications: Current Medications Bupropion HCl (Wellbutrin Xl) 300 mg PO DAILY [facility] Last Admin: 04/28/17 09:01 Dose: 300 mg Famotidine (Pepcid) 20 mg PO DAILY [facility] Last Admin: 04/28/17 09:01 Dose: 20 mg Montelukast Sodium (Singulair) 10 mg PO HS [facility] Oxycodone/Acetaminophen (Percocet 5/325 Mg Tab) 2 tab PO Q4H PRN PRN Reason: Pain, severe (8-10) Stop: 04/29/17 22:43 Last Admin: 04/28/17 13:37 Dose: 2 tab Pneumococcal Polyvalent Vaccine (Pneumovax 23 Vaccine) 0.5 ml IM .ONCE ONE Stop: 04/29/17 10:01 Rivaroxaban (Xarelto) 20 mg PO DAILY [facility] Last Admin: 04/28/17 09:01 Dose: 20 mg Rosuvastatin Calcium (Crestor) 2.5 mg PO HS [facility] Sotalol HCl (Betapace) 120 mg PO BID [facility] Last Admin: 04/28/17 17:45 Dose: 120 mg Tiotropium [place] (Spiriva) 18 mcg IH RQD [facility] Last Admin: 04/27/17 11:50 Dose: 18 mcg Results - Vital Signs Recent Vital Signs: Last Vital Signs Temp 98.6 F 04/28/17 16:00 Pulse 69 04/28/17 16:07 Resp 20 04/28/17 16:00 BP 149/94 H 04/28/17 16:00 Pulse Ox 98 04/28/17 16:00 - Labs Result Diagrams: 04/26/17 17:05 04/26/17 17:05
[2017-04-27] MEDS: buPROPion 150 mg/24 Hours XL Tab PO SCH (10:55)
--- NOTE | 2017-04-27 13:52 | CARD ---
APPROVED REPORT EXAM: Two-dimensional and M-mode echocardiogram with Doppler and color Doppler. Other Information Quality : GoodRhythm : Atrial Fibrillation INDICATION Chest Pain Syncope Palpitations RISK FACTORS Hyperlipidemia 2D DIMENSIONS IVSd1.3 (0.7-1.1cm)LVDd4.7 (3.9-5.9cm) PWd1.2 (0.7-1.1cm)LVDs2.6 (2.5-4.0cm) FS (%) 44.1 %LVEF (%)75.4 (>50%) M-Mode DIMENSIONS RVDd2.44 (2.1-3.2cm)Left Atrium (MM)4.31 (2.5-4.0cm) IVSd1.14 (0.7-1.1cm)Aortic Root2.87 (2.2-3.7cm) LVDd5.38 (4.0-5.6cm)Aortic Cusp Exc.1.84 (1.5-2.0cm) PWd1.08 (0.7-1.1cm)FS (%) 41 % LVDs3.19 (2.0-3.8cm)LVEF (%)71 (>50%) Mitral Valve MV E Udhjqfrh51.0cm/sMV A Njwdaiws57.9cm/sE/A ratio2.1 TDI E/Lateral E'0.0E/Medial E'0.0 Tricuspid Valve TR Peak [id number]/sTR Peak [id number] LEFT VENTRICLE The left ventricle is normal size. There is mild concentric left ventricular hypertrophy. The left ventricular function is normal. The left ventricular ejection fraction is within the normal range. There is normal LV segmental wall motion. The left ventricular diastolic function is normal. No left ventricle thrombus noted on this study. There is no ventricular septal defect visualized. There is no left ventricular aneurysm. There is no mass noted in the left ventricle. RIGHT VENTRICLE The right ventricle is normal size. There is normal right ventricular wall thickness. The right ventricular systolic function is normal. ATRIA The left atrium is mildly dilated. The right atrium size is normal. The interatrial septum is intact with no evidence for an atrial septal defect. AORTIC VALVE The aortic valve is normal in structure. No aortic regurgitation is present. There is no aortic valvular stenosis. There is no aortic valvular vegetation. MITRAL VALVE The mitral valve is normal in structure. There is no mitral valve stenosis. There is no mitral valve regurgitation noted. TRICUSPID VALVE The tricuspid valve is normal in structure. There is no tricuspid valve regurgitation noted. PULMONIC VALVE The pulmonary valve is normal in structure. There is no pulmonic valvular regurgitation. GREAT VESSELS The aortic root is normal in size. The ascending aorta is normal in size. The pulmonary artery is normal. The IVC is normal in size and collapses >50% with inspiration. <Conclusion> There is mild concentric left ventricular hypertrophy. The left ventricular function is normal. The left ventricular ejection fraction is within the normal range. The left atrium is mildly dilated.
--- NOTE | 2017-04-27 15:17 | VASCLAB ---
PROCEDURE: HISTORY: NEAR SYNCOPE FALL WITH DEFIBRILLATOR COMPARISON: None available. TECHNIQUE: Grayscale and duplex Doppler evaluation of the cervical carotid and vertebral arteries were performed. The common carotid, carotid bifurcations and cervical Internal Carotid Artery (ICA) and proximal External Carotid Artery (ECA) were evaluated. The vertebral arteries were evaluated for gross patency and flow direction. Report prepared by JOVANNA Quinn FINDINGS: RIGHT CAROTID ARTERIES: 1. Common Carotid Artery: No significant focal plaque formation of the right common carotid artery. Maximum Peak Systolic velocity: 119 cm/sec: End-diastolic velocity 23 cm/sec. 2. Carotid Bifurcation: plaque formation. Maximum Peak Systolic velocity: 60 cm/sec: End-diastolic velocity 19 cm/sec. 3. Internal Carotid Artery: Plaque description: 3.1. Proximal Segment: Peak systolic velocity 54 cm/sec: End-diastolic velocity 26 cm/sec - % stenosis 0-15% 3.2. Middle Segment: Peak systolic velocity 62 cm/sec: End-diastolic velocity 28 cm/sec - % stenosis 0-15% 3.3. Distal Segment: Peak systolic velocity 67 cm/sec: End-diastolic velocity 36 cm/sec - % stenosis 0-15% 4. External Carotid Artery: No significant focal plaque formation. Peak systolic velocity 78 cm/sec 5. ICA/CCA Ratio: 0.7 LEFT CAROTID ARTERIES: 1. Common Carotid Artery: No significant focal plaque formation of the left common carotid artery. Maximum Peak Systolic velocity: 129 cm/sec: End-diastolic velocity 25 cm/sec. 2. Carotid Bifurcation: plaque formation. Maximum Peak Systolic velocity: 44 cm/sec: End-diastolic velocity 13 cm/sec. 3. Internal Carotid Artery: Plaque description: 3.1. Proximal Segment: Peak systolic velocity 62 cm/sec: End-diastolic velocity 28 cm/sec - % stenosis 0-15% 3.2. Middle Segment: Peak systolic velocity 88 cm/sec: End-diastolic velocity 48 cm/sec - % stenosis 0-15% 3.3. Distal Segment: Peak systolic velocity 92 cm/sec: End-diastolic velocity 53 cm/sec - % stenosis 0-15% 4. External Carotid Artery: No significant focal plaque formation. Peak systolic velocity 67 cm/sec 5. ICA/CCA Ratio: 1.6 VERTEBRAL ARTERIES: 1. Right Vertebral Artery: The right vertebral artery flow direction is antegrade. 2. Left Vertebral Artery: The left vertebral artery flow direction is antegrade. OTHER FINDINGS: 1. Right Brachial Blood pressure: 130/90 mmHg. 2. Left Brachial Blood pressure: 130/90 mmHg. IMPRESSION: RIGHT: Duplex scan does not suggest hemodynamically significant stenosis of the right extracranial carotid arteries. LEFT: Duplex scan does not suggest hemodynamically significant stenosis of the left extracranial carotid arteries.
--- NOTE | 2017-04-27 18:14 | CP.PCM.HP ---
Past Patient History - Past Medical History & Family History Past Medical History?: Yes - Past Social History Smoking Status: Light Smoker < 10 Cigarettes Daily - CARDIAC Hx Atrial Fibrillation: Yes (? PT IS UNSURE) Hx Hypercholesterolemia: Yes Hx Hypertension: Yes - PULMONARY Hx Asthma: Yes - NEUROLOGICAL Hx Seizures: No - HEENT Hx HEENT Problems: No - RENAL Hx Chronic Kidney Disease: No - ENDOCRINE/METABOLIC Hx Endocrine Disorders: No - HEMATOLOGICAL/ONCOLOGICAL Hx Human Immunodeficiency Virus (HIV): No - INTEGUMENTARY Hx Dermatological Problems: No - MUSCULOSKELETAL/RHEUMATOLOGICAL Hx Musculoskeletal Disorders: Yes Hx Back Pain: Yes Hx Falls: No - GASTROINTESTINAL Hx Crohn's Disease: Yes - GENITOURINARY/GYNECOLOGICAL Hx Sexually Transmitted Disorders: No - PSYCHIATRIC Hx Depression: Yes Hx Substance Use: Yes (smokes marijuana) - SURGICAL HISTORY Hx Surgeries: Yes Other/Comment: INTERNAL DEFIB INSERTION. BACK SX, COLON RESECTION - ANESTHESIA Hx Anesthesia: Yes Hx Anesthesia Reactions: No Hx Malignant Hyperthermia: No Meds Allergies/Adverse Reactions: Allergies Allergy/AdvReac Type Severity Reaction Status Date / Time No Known Allergies Allergy Verified 03/15/17 15:39 Results - Vital Signs Recent Vital Signs: Last Vital Signs Temp 98.0 F 04/27/17 15:30 Pulse 64 04/27/17 16:00 Resp 20 04/27/17 15:30 BP 144/99 H 04/27/17 15:30 Pulse Ox 98 04/27/17 15:30 - Labs Result Diagrams: 04/26/17 17:05 04/26/17 17:05 Labs: Laboratory Results - last 24 hr 04/26/17 04/26/17 04/27/17 18:02 23:26 06:46 Troponin I < 0.0120 < 0.0120 Urine Opiates Screen Negative Urine Methadone Screen Negative Ur Barbiturates Screen Negative Ur Phencyclidine Scrn Negative Ur Amphetamines Screen Negative U Benzodiazepines Scrn Negative U Oth Cocaine Metabols Negative U Cannabinoids Screen Positive H
[2017-04-27] MEDS ORDERED: Rosuvastatin Calcium 2.5 mg Tab PO SCH (22:00)
[2017-04-27] MEDS ORDERED: DiphenhydrAMINE 50 mg/ml Inj IVP STA (22:05)
[2017-04-28] MEDS: buPROPion 150 mg/24 Hours XL Tab PO SCH (09:01)
[2017-04-28] MEDS ORDERED: Influenza Vaccine 60 mcg/0.5 mL SYR (4YR UP) IM ONE (10:00)
--- NOTE | 2017-04-28 13:21 | CARD ---
APPROVED REPORT EKG Measurement Heart [id number] <Conclusion> Sinus rhythm with 1st degree AV block Rightward axis Nonspecific intraventricular conduction delay Borderline ECG
[2017-04-28] MEDS: Oxycodone/Acetaminophen 5/325 mg Tab PO PRN (13:37)
[2017-04-28 16:52] VITALS: RESP 20
--- NOTE | 2017-04-28 18:04 | CP.PCM.PN ---
Subjective - Date & Time of Evaluation Date of Evaluation: 04/28/17 Time of Evaluation: 18:03 Objective - Vital Signs/Intake and Output Vital Signs (last 24 hours): Temp Pulse Resp BP Pulse Ox 98.6 F 69 20 149/94 H 98 04/28/17 16:00 04/28/17 16:07 04/28/17 16:00 04/28/17 16:00 04/28/17 16:00 Intake and Output: 04/28/17 04/28/17 06:59 18:59 Intake Total 340 Balance 340 - Medications Medications: Current Medications Bupropion HCl (Wellbutrin Xl) 300 mg PO DAILY [facility] Last Admin: 04/28/17 09:01 Dose: 300 mg Famotidine (Pepcid) 20 mg PO DAILY [facility] Last Admin: 04/28/17 09:01 Dose: 20 mg Montelukast Sodium (Singulair) 10 mg PO HS [facility] Oxycodone/Acetaminophen (Percocet 5/325 Mg Tab) 2 tab PO Q4H PRN PRN Reason: Pain, severe (8-10) Stop: 04/29/17 22:43 Last Admin: 04/28/17 13:37 Dose: 2 tab Pneumococcal Polyvalent Vaccine (Pneumovax 23 Vaccine) 0.5 ml IM .ONCE ONE Stop: 04/29/17 10:01 Rivaroxaban (Xarelto) 20 mg PO DAILY [facility] Last Admin: 04/28/17 09:01 Dose: 20 mg Rosuvastatin Calcium (Crestor) 2.5 mg PO HS [facility] Sotalol HCl (Betapace) 120 mg PO BID [facility] Last Admin: 04/28/17 17:45 Dose: 120 mg Tiotropium [place] (Spiriva) 18 mcg IH RQD [facility] Last Admin: 04/27/17 11:50 Dose: 18 mcg - Labs Labs: 04/26/17 17:05 04/26/17 17:05
[2017-04-28] MEDS ORDERED: Albuterol-Ipratrop 3 mg / 0.5 (3 ml) UD INH STA (20:29)
[2017-04-28] MEDS: Rosuvastatin Calcium 2.5 mg Tab PO SCH (21:06)
[2017-04-29] MEDS: Oxycodone/Acetaminophen 5/325 mg Tab PO PRN ×2 (02:56→11:19)
[2017-04-29] MEDS: buPROPion 150 mg/24 Hours XL Tab PO SCH (09:21)
[2017-04-29] MEDS ORDERED: Pneumococcal 23-Valent Vaccine IM ONE (10:00)
[2017-04-29] MEDS: Rosuvastatin Calcium 2.5 mg Tab PO SCH (21:32)
[2017-04-30 09:16] VITALS: BP 126/78; PULSE 61; TEMP 98; O2SAT 95
[2017-04-30] MEDS: buPROPion 150 mg/24 Hours XL Tab PO SCH (10:11)
--- NOTE | 2017-04-30 10:58 | CP.PCM.PN ---
Subjective - Date & Time of Evaluation Date of Evaluation: 04/29/17 Time of Evaluation: 17:20 - Subjective Subjective: Patient seen and evaluated Denies chest pain, dyspnea and diizziness Has been ambulating Review Of Systems Except As Marked, All Systems Reviewed And Found Negative. Constitutional: Negative for: Fever Cardiovascular: Negative for: Chest Pain Respiratory: Negative for: Shortness of Breath Gastrointestinal: Negative for: Nausea, Vomiting Musculoskeletal: Positive for: Other (right knee pain) Neurological: Positive for: Dizziness (prior to fall). Negative for: Weakness, Headache, Other (LOC) Physical Exam - Physical Exam Appears: Non-toxic, No Acute Distress, Other (Obese male) Skin: Normal Color, Warm, Dry, No Ecchymosis Head: Atraumatic, Normacephalic, No Abrasion, No Laceration, No Other (contusion , hematoma) Eye(s): bilateral: Normal Inspection, PERRL, EOMI Nose: Normal Oral Mucosa: Moist Neck: Normal ROM, No Midline Cervical Tenderness, Supple Chest: Symmetrical Cardiovascular: Rhythm Regular, No Murmur, Other (Defibrillator in left chest) Respiratory: Normal Breath Sounds, No Accessory Muscle Use Gastrointestinal/Abdominal: Normal Exam, Soft, No Tenderness Back: Normal Inspection, No CVA Tenderness, No Vertebral Tenderness Extremity: Tenderness (mild tenderness to right knee), No Deformity, No Swelling Neurological/Psych: Oriented x3, Normal Speech, Normal Cranial Nerves, Normal Motor, Normal Sensation Gait: Steady Objective - Vital Signs/Intake and Output Vital Signs (last 24 hours): Temp Pulse Resp BP Pulse Ox 98.0 F 61 20 126/78 95 04/30/17 09:15 04/30/17 09:15 04/30/17 09:15 04/30/17 09:15 04/30/17 09:15 Intake and Output: 04/30/17 04/30/17 06:59 18:59 Intake Total 750 Balance 750 - Medications Medications: Current Medications Bupropion HCl (Wellbutrin Xl) 300 mg PO DAILY [facility] Last Admin: 04/30/17 10:11 Dose: 300 mg Famotidine (Pepcid) 20 mg PO DAILY [facility] Last Admin: 04/30/17 10:14 Dose: 20 mg Montelukast Sodium (Singulair) 10 mg PO [facility] Last Admin: 04/29/17 21:32 Dose: 10 mg Nicotine (Nicoderm Cq) 1 patch TD DAILY [facility] Last Admin: 04/30/17 10:14 Dose: 1 patch Rivaroxaban (Xarelto) 20 mg PO DAILY [facility] Last Admin: 04/30/17 10:11 Dose: 20 mg Rosuvastatin Calcium (Crestor) 2.5 mg PO HS [facility] Last Admin: 04/29/17 21:32 Dose: 2.5 mg Sotalol HCl (Betapace) 120 mg PO BID [facility] Last Admin: 04/30/17 10:11 Dose: 120 mg Tiotropium [place] (Spiriva) 18 mcg IH RQD [facility] Last Admin: 04/27/17 11:50 Dose: 18 mcg - Labs Labs: 04/26/17 17:05 04/26/17 17:05 Assessment and Plan - Assessment and Plan (Free Text) Assessment: Afib Continue his home medication Xarelto 20mg PO daily Betapace (Sotalol) 120mg PO BID Patient has AICD in place (last checked Feb 2017) Echo: Near normal EF Troponin negative x 3 F/U with Dr. Brambila as out patient for Cardiology
--- NOTE | 2017-04-30 15:14 | CP.PCM.DIS ---
Provider - Provider Date of Admission: 04/28/17 17:44 Attending physician: Get Duron MD Time Spent in preparation of Discharge (in minutes): 20 Hospital Course - Lab Results Lab Results: Most Recent Lab Values WBC 8.7 K/uL (4.8-10.8) 04/26/17 17:05 RBC 5.27 Mil/uL (4.40-5.90) 04/26/17 17:05 Hgb 15.8 g/dL (12.0-18.0) 04/26/17 17:05 Hct 46.0 % (35.0-51.0) 04/26/17 17:05 MCV 87.2 fL (80.0-94.0) 04/26/17 17:05 MCH 30.0 pg (27.0-31.0) 04/26/17 17:05 MCHC 34.4 g/dL (33.0-37.0) 04/26/17 17:05 RDW 14.4 % (11.5-14.5) 04/26/17 17:05 Plt Count 232 K/uL (130-400) 04/26/17 17:05 MPV 8.2 fL (7.2-11.7) 04/26/17 17:05 Neut % (Auto) 67.3 % (50.0-75.0) 04/26/17 17:05 Lymph % (Auto) 19.9 % (20.0-40.0) L 04/26/17 17:05 [place] % (Auto) 10.2 % (0.0-10.0) H 04/26/17 17:05 Eos % (Auto) 1.5 % (0.0-4.0) 04/26/17 17:05 Baso % (Auto) 1.1 % (0.0-2.0) 04/26/17 17:05 Neut # (Auto) 5.9 K/uL (1.8-7.0) 04/26/17 17:05 Lymph # (Auto) 1.7 K/uL (1.0-4.3) 04/26/17 17:05 [place] # (Auto) 0.9 K/uL (0.0-0.8) H 04/26/17 17:05 Eos # (Auto) 0.1 K/uL (0.0-0.7) 04/26/17 17:05 Baso # (Auto) 0.1 K/uL (0.0-0.2) 04/26/17 17:05 Sodium 139 mmol/L (132-148) 04/26/17 17:05 Potassium 3.9 mmol/L (3.6-5.2) 04/26/17 17:05 Chloride 101 mmol/L (98-107) 04/26/17 17:05 Carbon Dioxide 26 mmol/L (22-30) 04/26/17 17:05 Anion Gap 15 (10-20) 04/26/17 17:05 BUN 13 mg/dL (9-20) 04/26/17 17:05 Creatinine 0.8 mg/dL (0.8-1.5) 04/26/17 17:05 Est GFR ( Amer) > 60 04/26/17 17:05 Est GFR (Non-Af Amer) > 60 04/26/17 17:05 Random Glucose 73 mg/dL (75-110) L 04/26/17 17:05 Calcium 9.6 mg/dl (8.6-10.4) 04/26/17 17:05 Total Bilirubin 0.5 mg/dL (0.2-1.3) 04/26/17 17:05 AST 41 U/L (17-59) 04/26/17 17:05 ALT 56 U/L (21-72) 04/26/17 17:05 Alkaline Phosphatase 64 U/L (38-126) 04/26/17 17:05 Troponin I < 0.0120 ng/mL (0.00-0.120) 04/29/17 07:31 Total Protein 7.3 g/dL (6.3-8.3) 04/26/17 17:05 Albumin 4.2 g/dL (3.5-5.0) 04/26/17 17:05 Globulin 3.1 gm/dL (2.2-3.9) 04/26/17 17:05 Albumin/Globulin Ratio 1.3 (1.0-2.1) 04/26/17 17:05 Urine Color Yellow (YELLOW) 04/26/17 18:02 Urine Clarity Hazy (Clear) 04/26/17 18:02 Urine pH 5.0 (5.0-8.0) 04/26/17 18:02 Ur Specific [place] 1.024 (1.003-1.030) 04/26/17 18:02 Urine Protein Negative mg/dL (NEGATIVE) 04/26/17 18:02 Urine Glucose (UA) Normal mg/dL (Normal) 04/26/17 18:02 Urine Ketones Negative mg/dL (NEGATIVE) 04/26/17 18:02 Urine Blood Trace (NEGATIVE) H 04/26/17 18:02 Urine Nitrate Negative (NEGATIVE) 04/26/17 18:02 Urine Bilirubin Negative (NEGATIVE) 04/26/17 18:02 Urine Urobilinogen Normal mg/dL (0.2-1.0) 04/26/17 18:02 Ur Leukocyte Esterase Neg [place]/uL (Negative) 04/26/17 18:02 Urine WBC (Auto) < 1 /hpf (0-5) 04/26/17 18:02 Urine RBC (Auto) 3 /hpf (0-3) 04/26/17 18:02 Urine Bacteria Rare (<OCC) 04/26/17 18:02 Urine Opiates Screen Negative (NEGATIVE) 04/26/17 18:02 Urine Methadone Screen Negative (NEGATIVE) 04/26/17 18:02 Ur Barbiturates Screen Negative (NEGATIVE) 04/26/17 18:02 Ur Phencyclidine Scrn Negative (NEGATIVE) 04/26/17 18:02 Ur Amphetamines Screen Negative (NEGATIVE) 04/26/17 18:02 U Benzodiazepines Scrn Negative (NEGATIVE) 04/26/17 18:02 U Oth Cocaine Metabols Negative (NEGATIVE) 04/26/17 18:02 U Cannabinoids Screen Positive (NEGATIVE) H 04/26/17 18:02 Discharge Plan - Follow Up Plan Condition: GOOD Disposition: HOME/ ROUTINE Instructions: Contusion (DC), Knee Sprain (DC) Referrals: Aime Martinez III, MD [Staff Provider] - Jose E Escobedo MD, PhD [Staff Provider] -
[2017-04-30] MEDS ORDERED: Influenza Vaccine 60 mcg/0.5 mL SYR (4YR UP) IM ONE (15:34)
--- NOTE | 2017-05-04 23:08 | CARD ---
APPROVED REPORT EKG Measurement Heart [id number] <Conclusion> Sinus rhythm with 1st degree AV block Rightward axis Nonspecific intraventricular block Abnormal ECG
== END 2017-04-30 16:48 | disposition home or self-care (01) ==
LOC: C.ER 14:44 → C.9E 18:59 → C.6T 04-27 14:35 → OBSVTOIN 04-28 17:44 → INTOOBSV 04-28 17:44
PROVIDERS: ADMIT Internal Medicine Critical Care Medicine; ATTEND Internal Medicine Critical Care Medicine
DX: I48.91 Unspecified atrial fibrillation (principal); K50.90 Crohn's disease, unspecified, without complications; S80.01XA Contusion of right knee, initial encounter; S00.93XA Contusion of unspecified part of head, initial encounter; J45.909 Unspecified asthma, uncomplicated; E11.9 Type 2 diabetes mellitus without complications; E78.00 Pure hypercholesterolemia, unspecified; I25.10 Atherosclerotic heart disease of native coronary artery without angina pectoris; F12.90 Cannabis use, unspecified, uncomplicated; F17.210 Nicotine dependence, cigarettes, uncomplicated; Z95.810 Presence of automatic (implantable) cardiac defibrillator; W10.9XXA Fall (on) (from) unspecified stairs and steps, initial encounter; E78.5 Hyperlipidemia, unspecified; I10 Essential (primary) hypertension
CPT/HCPCS: 36415; 70450; 71045; 73562; 80053; 80324; 80345; 80346; 80349; 80353; 80358; 80361; 81001; 83992; 84484; 85025; 90471; 90674; 93005; 93306; 93880; 94640; 99285; G0378; J1200

== ENCOUNTER 2017-07-24 01:47 | Inpatient (IN) | payer MEDICAID, OTHER ==
[2017-07-24 01:47] VITALS: BMI 31.9
--- NOTE | 2017-07-24 02:19 | C.PDOC ---
History Of Present Illness 37 year old male presents to the ED for evaluation of slight chest pain. Patient also reports suicidal ideation, stating he wants to kill himself. Patient denies homicidal ideation and has no other complaints at this time. Chief Complaint (Nursing): Chest Pain History Per: Patient History/Exam Limitations: no limitations Onset/Duration Of Symptoms: Days Current Symptoms Are (Timing): Still Present Quality: "Pain" Additional History Per: Patient Past Medical History Reviewed: Historical Data, Nursing Documentation, Vital Signs Vital Signs: Last Vital Signs Temp 98.3 F 07/24/17 03:50 Pulse 91 H 07/24/17 03:50 Resp 20 07/24/17 03:50 BP 126/86 07/24/17 03:50 Pulse Ox 96 07/24/17 03:50 - Medical History PMH: Asthma, Atrial Fibrillation (? PT IS UNSURE), Back Problems (HERNIATED DISCS), Crohn's Disease, Depression, HTN, Hypercholesterolemia, Hyperlipidemia Denies: Diabetes, Hepatitis, HIV, Chronic Kidney Disease, Seizures, Sexually Transmitted Disease Surgical History: Back Surgery - [facility] Procedures EXCISION OF ASCENDING COLON, ENDO (03/15/17) GROUP PSYCHOTHERAPY (09/14/16) INDIV PSYCHOTHERAPY FOR SUBSTANCE ABUSE TREATMENT, SUPPORT (09/14/16) INDIVIDUAL PSYCHOTHERAPY, SUPPORTIVE (09/14/16) MEDICATION MANAGEMENT (09/14/16) MEDS MGMT FOR SUBSTANCE ABUSE TREATMENT, OTH REPL MED (09/14/16) Family History: States: [place], CAD, Diabetes, Hypertension - Social History Hx Tobacco Use: Yes (1/2 ppd for 24 years) Hx Alcohol Use: No Hx Substance Use: Yes (smokes marijuana) - Immunization History Hx Tetanus Toxoid Vaccination: No Hx Influenza Vaccination: No Hx Pneumococcal Vaccination: No Review Of Systems Cardiovascular: Positive for: Chest Pain Psych: Positive for: Suicidal ideation Physical Exam - Physical Exam Appears: Non-toxic, No Acute Distress Skin: Normal Color, Warm, Dry Head: Atraumatic, Normacephalic Eye(s): bilateral: Normal Inspection Oral Mucosa: Moist, Other (slight alcohol on breath ) Neck: Supple Chest: Symmetrical, No Deformity, No Tenderness Cardiovascular: Rhythm Regular, No Murmur Respiratory: Normal Breath Sounds, No Rales, No Rhonchi, No Wheezing Extremity: Normal ROM, Capillary Refill (less than 2 seconds ) Neurological/Psych: Oriented x3, Normal Speech, Normal Cognition ED Course And Treatment - Laboratory Results Result Diagrams: 07/24/17 02:59 07/24/17 02:59 ECG: Interpreted By Me, Viewed By Me ECG Rhythm: Sinus Tachycardia, 1st Degree HB, ST/T Changes ECG Interpretation: Abnormal Interpretation Of ECG: Sinus tachycardia, IVCD, no significant change from old tracings of04/28/2017 Rate From EC O2 Sat by Pulse Oximetry: 97 Pulse Ox Interpretation: Normal Progress Note: Bloodwork, urinalysis, EKG ordered. Disposition Discussed With DrShayy: Arlette Dixon Doctor Will See Patient In The: Hospital Counseled Patient/Family Regarding: Diagnosis - Disposition Disposition: HOSPITALIZED Disposition Time: 04:43 Condition: STABLE Forms: [facility] (Japanese) - POA Present On Arrival: None - Clinical Impression Clinical Impression: Major depression - Scribe Statement The provider has reviewed the documentation as recorded by the Scribe (Arlet Rodriguez) Provider Attestation: All medical record entries made by the Scribe were at my direction and personally dictated by me. I have reviewed the chart and agree that the record accurately reflects my personal performance of the history, physical exam, medical decision making, and the department course for this patient. I have also personally directed, reviewed, and agree with the discharge instructions and disposition.
[2017-07-24 03:01] LABS: BASO # 0.1 K/uL (0.0-0.2); EOS # 0.2 K/uL (0.0-0.7); EOS % 2.5 % (0.0-4.0); HEMOGLOBIN 16.3 g/dL (12.0-18.0); LYMPH # 2.4 K/uL (1.0-4.3); LYMPH % 29.7 % (20.0-40.0); MEAN CELL VOLUME 86.7 fL (80.0-94.0); MEAN CORPUSCULAR HEMOGLOBIN 30.3 pg (27.0-31.0); MEAN CORPUSCULAR HGB CONC 34.9 g/dL (33.0-37.0); MEAN PLATELET VOLUME 8.8 fL (7.2-11.7); MONO # 0.7 K/uL (0.0-0.8); MONO % 8.5 % (0.0-10.0); NEUT # 4.7 K/uL (1.8-7.0); NEUT % 58.3 % (50.0-75.0); NRBC % 0.1 % (0.0-2.0); RBC 5.39 Mil/uL (4.40-5.90); RED CELL DISTRIBUTION WIDTH 14.2 % (11.5-14.5); WHITE BLOOD COUNT 8.1 K/uL (4.8-10.8)
[2017-07-24 03:14] LABS: ALB/GLOB RATIO 1.4 (1.0-2.1); ALBUMIN 4.6 g/dL (3.5-5.0); ALT/SGPT 60 U/L (21-72); AST/SGOT 39 U/L (17-59); BLOOD UREA NITROGEN 11 mg/dL (9-20); CALCIUM 9.1 mg/dl (8.6-10.4); GFR AFRICAN-AMERICAN > 60; GFR NON-AFRICAN AMERICAN > 60
[2017-07-24 03:27] LABS: URINE BILIRUBIN NEGATIVE (NEGATIVE); URINE BLOOD 1+ (NEGATIVE); URINE CLARITY Clear (Clear); URINE COLOR Yellow (YELLOW); URINE GLUCOSE (UA) NORMAL (Normal); URINE LEUKOCYTE ESTERASE NEG Leu/uL (Negative); URINE PROTEIN NEGATIVE (NEGATIVE); URINE UROBILINOGEN NORMAL mg/dL (0.2-1.0)
[2017-07-24 03:41] LABS: BARBITURATES, UR NEGATIVE (NEGATIVE); BENZODIAZEPINES, UR NEGATIVE (NEGATIVE); OPIATES, UR NEGATIVE (NEGATIVE); PHENCYCLIDINE, UR NEGATIVE (NEGATIVE)
[2017-07-24 04:43] VITALS: O2SAT 97
--- NOTE | 2017-07-24 06:20 | PCM.BM ---
<Theron Mejia - Last Filed: 07/24/17 06:18> Treatment Plan Problems - Problems identified on initial assessmt Major Depression Date Initiated: 07/24/17 Time Initiated: 05:50 Assessment reference: NA Status: Active Substance Abuse Date Initiated: 07/24/17 Time Initiated: 05:50 Assessment reference: NA Status: Active Treatment assets and liabiliti Patient Assests: adapts well, cooperative, self-reliant, ADL independent, negotiates basic needs Patient Liabilities: live alone, financial problems, poor support system, relationship conflicts, dietary restrictions, substance abuse, medical problems , legal issue - Milieu Protocol Maintain good personal hygiene: daily Encourage regular showers, daily Remind patient to perform daily oral care, daily Assist patient to perform ADL's Maintain personal safety: every shift Educate patient to report safety concerns to staff, every shift Monitor environment for contraband/sharps Medication safety: Monitor for expected outcome, potential side effects: every shift, Assess barriers to learning: every shift, Assess readiness for medication education: every shift <Shelby Delacruz - Last Filed: 07/24/17 11:51> - Diagnosis (1) Major depression Status: Acute Interventions: 07/24/17 11:51 * Assess/adjust medications daily and /or as needed * See patient on an individual basis 7x/week to assess symptoms of depression * Monitor for side effects & effectiveness of medications * <Christy Cadet - Last Filed: 07/24/17 17:48> Family Contact Family involvement: Patient does not wish Family/SO involvement Family contact: Patient declines to allow family contact at present - Goals for Treatment Patient goals for treatment: "I want to return to [facility]." Discharge/Continuing Care - Education Needs Education Needs: Patient Medication, Patient Coping Skills, Patient Community resources - Discharge Discharge Criteria: Free of Suicidal thoughts, Normal sleep pattern, Ability to care for self, Reduction of target symptoms Discharge to:: Home - Treatment Team Participation Discussed with Family/SO: No Was Patient/Family/SO present at Treatment Team Meeting: Yes
[2017-07-24] MEDS: buPROPion 150 mg/24 Hours XL Tab PO SCH (09:58)
[2017-07-24] MEDS: Multiple Vitamins Tab PO SCH (09:58)
--- NOTE | 2017-07-24 10:26 | PCM.PSYCH ---
Initial Psychiatric Evaluation - Initial Psychiatric Evaluation Type of Admission: Voluntary Legal Status: Capacity Chief Complaint (in patient's own words): I was feeling increasingly depressed and suicidal.' History of Present Illness and Precipitating Events: Patient is a 37 yo man, who lives alone, came to the hospital with depressed mood and suicidal ideation. Patient has history of multiple inpatient psychiatric hospitalizations. He [facility] Pt reports that he had a verbal altercation with his ex-girlfriend. He reports the following: "My son is graduating, but I don't have no money for his graduation;" My daughter (16yo) started dating this boy, and she wanted me to help tell her mom;" So, when I spoke to my ex, she (mother of Pt's children) started yelling at me and said my daughter's too young to date." As per the patient yesterday he started drinking. He consumed almost "2 bottles of wine". As per the patient he became increasingly depressed and developed suicidal ideation with plan to either "fight with the data management" or "jump off a roof or something". So he came to the hospital to get help. Patient remained increasingly depressed throughout the interview. He reports feelings of hopelessness and helplessness. He reports, 'I felt like I ain't worth nothing;" I can't help my kids;" I ain't got no money;" No job;" They're better off wihtout me." Reports poor sleep, anhedonia and poor appetite. He described as: "My sex life sucks", "I don't want to go out no where", and "I don 't want to see nobody'. He denies any auditory or visual hallucinations or any paranoia. He reports of smoking marijuana off and on, but denies any cocaine or heroin abuse. Past medical history Atrial Fibrillation s/p Defibrilator, Back Pain due to herniated disc, Crohn's Disease, HTN, Hyperlipidemia Current Medications: Active Medications Generic Name Dose Route Start Last Admin Trade Name Freq PRN Reason Stop Dose Admin Bupropion HCl 150 mg 07/24/17 10:00 07/24/17 09:58 Wellbutrin Xl PO 150 mg DAILY ABRAN Administration Buspirone HCl 10 mg 07/24/17 10:00 07/24/17 09:58 Buspar PO 10 mg BID ABRAN Administration Chlordiazepoxide 25 mg 07/24/17 07:52 Librium PO 07/25/17 11:00 Q4H PRN Alcohol Withdrawal Clonidine HCl 0.1 mg 07/24/17 07:52 Catapres PO Q4H PRN Symptoms of alcohol withdrawl Folic Acid 1 mg 07/24/17 10:00 07/24/17 09:58 Folic Acid PO 1 mg DAILY ABRAN Administration Hydroxyzine HCl 25 mg 07/24/17 07:05 Atarax PO Q6H PRN Anxiety Multivitamins 1 tab 07/24/17 10:00 07/24/17 09:58 Hexavitamin PO 1 tab DAILY ABRAN Administration Pneumococcal Polyvalent Vaccine 0.5 ml 07/25/17 10:00 Pneumovax 23 Vaccine IM 07/25/17 10:01 .ONCE ONE Thiamine HCl 100 mg 07/24/17 10:00 07/24/17 09:58 Vitamin B1 Tab PO 100 mg DAILY ABRAN Administration Past Psychiatric History - Past Psychiatric History Previous Treatment History: Inpatient Pertinent Medical Hx (Current Medical&Sleep Prob, Allergies): Allergies Allergy/AdvReac Type Severity Reaction Status Date / Time No Known Allergies Allergy Verified 07/24/17 02:52 Bupropion HCl [Bupropion Xl] 300 mg PO DAILY 08/17/16 Hydrocodone/Acetaminophen [Hydrocodone-Acetamin 10-325 mg] 1 tab PO Q4 PRN 08/17 Montelukast Sodium [Singulair] 10 mg PO DAILY 08/17/16 Rivaroxaban [Xarelto] 20 mg PO DAILY 08/17/16 Sotalol [Betapace] 120 mg PO BID 08/17/16 Famotidine [Pepcid] 20 mg PO DAILY 03/15/17 Ramelteon [Rozerem] 8 mg PO HS 03/15/17 Simvastatin 10 mg PO DAILY 03/15/17 Tiotropium [Spiriva] 18 mcg IH DAILY 03/15/17 Review of Systems - Review of Systems All systems: reviewed and no additional remarkable complaints except - Psychiatric Psychiatric: Anxiety, Depression, Hopelessness, Irritability, Suicidal Ideation Mental Status Examination - Personal Presentation Personal Presentation: Looks stated age - Affect Affect: Constricted, Depressed - Motor Activity Motor Activity: Psychomotor Retardation - Reliability in Providing Information Reliability in Providing Information: Fair - Speech Speech: Organized - Mood Mood: Depressed, Anxious - Formal Thought Process Formal Thought Process: No Impairment - Obsessions/Compulsions Obsessions: No Compulsions: No - Cognitive Functions Orientation: Person, Place, Situation, Time Sensorium: Alert Attention/Concentration: Attentive Abstract Thinking: [place] Estimate of Intelligence: Below average Judgement: Imparied, as evidence by: Poor judgement, Imparied, as evidence by: Lack of insight into illness - Risk Risk: Suicidal, Withdrawal, Diminished functioning - Limitations Limitations: Living alone DSM 5 DX - DSM 5 DSM 5 Diagnosis: Major depressive disorder /recurrent severe without psychotic features Alcohol use disorder severe Alcohol withdrawal uncomplicated Cannabis use disorder moderate - Recommended/Plan of Treatment Treatment Recommendations and Plan of Treatment: Major depressive disorder /recurrent severe without psychotic features -CBT -Psychoeducation -Supportive therapy, group therapy, individual therapy -Wellbutrin 150 mg daily -Buspar 15 mg by mouth twice a day Alcohol use disorder severe Alcohol withdrawal uncomplicated -CBT -Psychoeducation -Supportive therapy, individual therapy -Use [place] for abstinence -Librium when necessary -Folic acid/thiamine/multivitamin Cannabis use disorder severe -Psychoeducation -Supportive therapy, individual therapy -Use [place] for abstinence Atrial Fibrillation s/p Defibrilator -Continue prescribed medications Back Pain due to herniated disc -Monitor signs and symptoms Crohn's Disease -Monitor signs and symptoms, HTN -Continue prescribed medications, Hyperlipidemia -Continue prescribed medications Asthma -Continue prescribed medications - Smoking Cessation Smoking Cessation Initiated: No
[2017-07-24] MEDS: Tiotropium 18 mcg Cap For Inhalation INH SCH (12:41)
[2017-07-24] MEDS ORDERED: RAMELTEON 8 MG PO SCH (22:00)
[2017-07-25] MEDS ORDERED: Pneumococcal 23-Valent Vaccine IM ONE (10:00)
[2017-07-25] MEDS: Tiotropium 18 mcg Cap For Inhalation INH SCH (10:28)
[2017-07-25] MEDS: Multiple Vitamins Tab PO SCH (10:32)
[2017-07-25] MEDS: buPROPion 150 mg/24 Hours XL Tab PO SCH (10:33)
--- NOTE | 2017-07-25 12:26 | CARD ---
APPROVED REPORT EKG Measurement Heart [id number] <Conclusion> Sinus tachycardia with 1st degree AV block Right axis deviation ST elevation, consider anterior injury or acute infarct ACUTE [place] / STEMI Abnormal ECG
[2017-07-26] MEDS: Tiotropium 18 mcg Cap For Inhalation INH SCH (07:38)
[2017-07-26] MEDS: Multiple Vitamins Tab PO SCH (09:37)
[2017-07-26] MEDS: buPROPion 150 mg/24 Hours XL Tab PO SCH (09:38)
--- NOTE | 2017-07-26 14:57 | PCM.PYCHPN ---
Psychiatric Progress Note - Psychiatric Progress Note Patient Chief Complaint: I was feeling increasingly depressed and suicidal.' Mental Status Examination - Cognitive Function Orientation: Person, Place, Situation, Time - Mood Mood: Depressed, Anxious - Affect Affect: Constricted, Depressed - Formal Thought Process Formal Thought Process: No Impairment - Homicidal Ideation Homicidal Ideation: No Goal/Treatment Plan - Goal/Treatment Plan Progress Toward Problem(s) and Goals/Treatment Plan: Major depressive disorder /recurrent severe without psychotic features -CBT -Psychoeducation -Supportive therapy, group therapy, individual therapy -Wellbutrin 150 mg daily -Buspar 15 mg by mouth twice a day Alcohol use disorder severe Alcohol withdrawal uncomplicated -CBT -Psychoeducation -Supportive therapy, individual therapy -Use [place] for abstinence -Librium when necessary -Folic acid/thiamine/multivitamin Cannabis use disorder severe -Psychoeducation -Supportive therapy, individual therapy -Use [place] for abstinence Atrial Fibrillation s/p Defibrilator -Continue prescribed medications Back Pain due to herniated disc -Monitor signs and symptoms Crohn's Disease -Monitor signs and symptoms, HTN -Continue prescribed medications, Hyperlipidemia -Continue prescribed medications Asthma -Continue prescribed medications
--- NOTE | 2017-07-26 14:57 | PCM.PYCHPN ---
Psychiatric Progress Note - Psychiatric Progress Note Patient Chief Complaint: I was feeling increasingly depressed and suicidal.' Mental Status Examination - Cognitive Function Orientation: Person, Place, Situation, Time - Mood Mood: Depressed, Anxious - Affect Affect: Constricted, Depressed - Formal Thought Process Formal Thought Process: No Impairment - Homicidal Ideation Homicidal Ideation: No Goal/Treatment Plan - Goal/Treatment Plan Progress Toward Problem(s) and Goals/Treatment Plan: Major depressive disorder /recurrent severe without psychotic features -CBT -Psychoeducation -Supportive therapy, group therapy, individual therapy -Wellbutrin 150 mg daily -Buspar 15 mg by mouth twice a day Alcohol use disorder severe Alcohol withdrawal uncomplicated -CBT -Psychoeducation -Supportive therapy, individual therapy -Use [place] for abstinence -Librium when necessary -Folic acid/thiamine/multivitamin Cannabis use disorder severe -Psychoeducation -Supportive therapy, individual therapy -Use [place] for abstinence Atrial Fibrillation s/p Defibrilator -Continue prescribed medications Back Pain due to herniated disc -Monitor signs and symptoms Crohn's Disease -Monitor signs and symptoms, HTN -Continue prescribed medications, Hyperlipidemia -Continue prescribed medications Asthma -Continue prescribed medications
[2017-07-26 16:34] VITALS: PULSE 60
[2017-07-27 06:25] VITALS: BP 123/77; RESP 19; TEMP 97.5
[2017-07-27] MEDS: Tiotropium 18 mcg Cap For Inhalation INH SCH (07:48)
[2017-07-27] MEDS: buPROPion 150 mg/24 Hours XL Tab PO SCH (09:46)
[2017-07-27] MEDS: Multiple Vitamins Tab PO SCH (09:48)
== END 2017-07-27 11:15 | disposition home or self-care (01) | DRG 430 ==
LOC: C.ER 01:47 → C.5E 04:44
PROVIDERS: ADMIT Psychiatry & Neurology Psychiatry; ATTEND Psychiatry & Neurology Psychiatry
PROC: HZ2ZZZZ Detoxification Services for Substance Abuse Treatment (ICD-10-PCS; principal; 2017-07-24)
PROC: GZHZZZZ Group Psychotherapy (ICD-10-PCS; 2017-07-24)
PROC: HZ52ZZZ Individual Psychotherapy for Substance Abuse Treatment, Cognitive-Behavioral (ICD-10-PCS; 2017-07-24)
PROC: HZ59ZZZ Individual Psychotherapy for Substance Abuse Treatment, Supportive (ICD-10-PCS; 2017-07-24)
PROC: HZ56ZZZ Individual Psychotherapy for Substance Abuse Treatment, Psychoeducation (ICD-10-PCS; 2017-07-24)
PROC: HZ42ZZZ Group Counseling for Substance Abuse Treatment, Cognitive-Behavioral (ICD-10-PCS; 2017-07-24)
PROC: HZ46ZZZ Group Counseling for Substance Abuse Treatment, Psychoeducation (ICD-10-PCS; 2017-07-24)
PROC: GZ58ZZZ Individual Psychotherapy, Cognitive-Behavioral (ICD-10-PCS; 2017-07-24)
PROC: GZ56ZZZ Individual Psychotherapy, Supportive (ICD-10-PCS; 2017-07-24)
DX: F33.2 Major depressive disorder, recurrent severe without psychotic features (principal); F10.230 Alcohol dependence with withdrawal, uncomplicated; E11.9 Type 2 diabetes mellitus without complications; E78.00 Pure hypercholesterolemia, unspecified; Y90.2 Blood alcohol level of 40-59 mg/100 ml; F12.20 Cannabis dependence, uncomplicated; I10 Essential (primary) hypertension; I25.10 Atherosclerotic heart disease of native coronary artery without angina pectoris; I48.91 Unspecified atrial fibrillation; J45.909 Unspecified asthma, uncomplicated; K50.90 Crohn's disease, unspecified, without complications; R45.851 Suicidal ideations; M51.26 Other intervertebral disc displacement, lumbar region; Z87.891 Personal history of nicotine dependence; Z95.810 Presence of automatic (implantable) cardiac defibrillator

== ENCOUNTER 2018-07-21 19:03 | Outpatient (CLI) | payer OTHER | END 2018-07-21 19:04 | disposition home or self-care (01) | LOC: C.SLEEP 19:03 | DX: G47.33 Obstructive sleep apnea (adult) (pediatric) (principal) ==